=== PATIENT | male | born 1960 | race Caucasian/White ===

== ENCOUNTER 2017-11-05 13:46 | Inpatient (IN) | payer MEDICAID, OTHER ==
[~2017-11-05] VITALS: Ht 170.2 cm; Wt 75.9 kg
[~2017-11-05 13:46] MED LIST: ASPI-611 PO; HYDR-569 PO; LEVO750T21 PO; METF500T PO
[2017-11-05 16:08] LABS: BASOPHILS # (AUTO) 0.1 X10'3 (0-0.2); BASOPHILS % (AUTO) 0.5 % (0-1); EOSINOPHILS % (AUTO) 0.1 % (0-6); HEMATOCRIT 42.7 % (42.0-52.0); LYMPHOCYTES # (AUTO) 1.7 X10'3 (1.1-4.8); LYMPHOCYTES % (AUTO) 15.8 % (21-51); MEAN CORPUSCULAR HEMOGLOBIN 31.3 PG (27.0-31.0); MEAN CORPUSCULAR HGB CONC 32.9 % (33.0-36.5); MEAN CORPUSCULAR VOLUME 95.3 FL (78-98); MEAN PLATELET VOLUME 7.4 FL (7.4-10.4); MONOCYTES # (AUTO) 1.1 X10'3 (0-0.9); MONOCYTES % (AUTO) 9.5 % (2-12); NEUTROPHILS # (AUTO) 8.2 X10'3 (1.8-7.7); NEUTROPHILS % (AUTO) 74.1 % (42-75); PLATELET COUNT 501 X10'3 (140-440); RED BLOOD COUNT 4.48 X10'6 (4.70-6.10); WHITE BLOOD COUNT 11.1 X10'3 (4.5-11.0)
[2017-11-05 16:21] LABS: PARTIAL THROMBOPLASTIN TIME 27 SECONDS (22-32); PROTHROMBIN TIME 10.8 SECONDS (9.0-12.0)
[2017-11-05 16:22] LABS: ALANINE AMINOTRANSFERASE 24 U/L (12-78); ALBUMIN 2.6 G/DL (3.4-5.0); ALBUMIN/GLOBULIN RATIO 0.4 (1.1-1.5); ALKALINE PHOSPHATASE 93 IU/L (46-116); ANION GAP 11 (8-16); ASPARTATE AMINO TRANSFERASE 16 U/L (10-37); BILIRUBIN,TOTAL 0.5 MG/DL (0.1-1.0); BLOOD UREA NITROGEN 10 MG/DL (7-18); BUN/CREATININE RATIO 9.3 (5.4-32.0); CALCIUM 9.2 MG/DL (8.5-10.1); CHLORIDE 93 MMOL/L (99-107); CREATININE 1.07 MG/DL (0.60-1.10); GLUCOSE 376 MG/DL (70-104); POTASSIUM 3.2 MMOL/L (3.5-5.1); SODIUM 133 MMOL/L (135-145); TOTAL CARBON DIOXIDE 28.9 MMOL/L (24-32); TOTAL PROTEIN 8.7 G/DL (6.4-8.2); eGFR 72 ML/MIN
[2017-11-05] MEDS ORDERED: potassium Cl 20 mEq SR tablet PO ONE (16:30)
[2017-11-05] MEDS ORDERED: ondansetron/PF 4mg/2ml inj IV ONE (16:30)
[2017-11-05] MEDS ORDERED: dextrose ORAL solution 15 GM/59 ML bottle PO PRN ×2 (20:15)
[2017-11-05] MEDS ORDERED: ondansetron/PF 4mg/2ml inj IV PRN (20:15)
[2017-11-05] MEDS ORDERED: acetaminophen 325mg tablet PO PRN (20:15)
[2017-11-05] MEDS ORDERED: MESSAGE TO PHARMACY PO ONE (20:15)
[2017-11-05] MEDS: azithromycin/NS 500mg/250ml 250 ML IV SCH (20:15)
[2017-11-05] MEDS ORDERED: dextrose 50%-water 50ml dispensing syringe IV PRN ×2 (20:15)
[2017-11-05] MEDS ORDERED: mag hydrox/Alum hydrox/simeth 30ml oral suspension PO PRN (20:15)
[2017-11-05] MEDS ORDERED: magnesium hydroxide 30ml (MOM) UD suspension PO PRN (20:15)
[2017-11-05] MEDS ORDERED: glucagon, human recombinant 1mg kit SUBCUT PRN (20:15)
[2017-11-05] MEDS ORDERED: potassium Cl 20 mEq SR tablet PO PRN (20:50)
[2017-11-05] MEDS ORDERED: potassium Cl 40MEQ/NS 500ml 500 ML IV PRN ×2 (20:50)
[2017-11-05] MEDS: Insulin Detemir pen SQ SCH (21:00)
[2017-11-05] MEDS: CefTRIAXone 2gm/D5W 50ml ADVTG 50 ML IV SCH (21:10)
[2017-11-06] VITALS (9 sets, daily range): BP systolic 124–203; BP diastolic 81–120
[2017-11-06] MEDS ORDERED: Insulin Detemir pen SQ ONE (01:38)
[2017-11-06 04:31] LABS: BASOPHILS # (AUTO) 0.1 X10'3 (0-0.2); EOSINOPHILS # (AUTO) 0.1 X10'3 (0-0.9); EOSINOPHILS % (AUTO) 0.6 % (0-6); HEMATOCRIT 38.3 % (42.0-52.0); LYMPHOCYTES # (AUTO) 1.5 X10'3 (1.1-4.8); LYMPHOCYTES % (AUTO) 16.8 % (21-51); MEAN CORPUSCULAR HEMOGLOBIN 31.9 PG (27.0-31.0); MEAN PLATELET VOLUME 7.8 FL (7.4-10.4); MONOCYTES # (AUTO) 0.7 X10'3 (0-0.9); MONOCYTES % (AUTO) 8.3 % (2-12); NEUTROPHILS # (AUTO) 6.3 X10'3 (1.8-7.7); NEUTROPHILS % (AUTO) 73.3 % (42-75); PLATELET COUNT 471 X10'3 (140-440); RED BLOOD COUNT 4.07 X10'6 (4.70-6.10); RED CELL DISTRIBUTION WIDTH 13.3 % (11.5-14.5); WHITE BLOOD COUNT 8.6 X10'3 (4.5-11.0)
[2017-11-06 04:52] LABS: ALBUMIN 2.2 G/DL (3.4-5.0); ANION GAP 10 (8-16); BLOOD UREA NITROGEN 7 MG/DL (7-18); CALCIUM 8.4 MG/DL (8.5-10.1); CHLORIDE 97 MMOL/L (99-107); CREATININE 0.78 MG/DL (0.60-1.10); GLUCOSE 289 MG/DL (70-104); MAGNESIUM 1.9 MG/DL (1.5-2.4); POTASSIUM 3.9 MMOL/L (3.5-5.1); SODIUM 134 MMOL/L (135-145); TOTAL CARBON DIOXIDE 26.7 MMOL/L (24-32); eGFR > 90 ML/MIN
[2017-11-06] MEDS: CefTRIAXone 2gm/D5W 50ml ADVTG 50 ML IV SCH (08:26)
[2017-11-06] MEDS: azithromycin/NS 500mg/250ml 250 ML IV SCH (08:26)
[2017-11-06] MEDS ORDERED: midazolam 2 mg/2 ml injection IV PRN (08:40)
[2017-11-06] MEDS ORDERED: fentaNYL/PF 50MCG/1 ML 2ML syringe IV PRN (08:40)
[2017-11-06] MEDS ORDERED: fentaNYL/PF 50MCG/1 ML 2ML syringe ONE (09:23)
[2017-11-06] MEDS ORDERED: midazolam 2 mg/2 ml injection ONE (09:23)
[2017-11-06 11:33] LABS: LYMPHOCYTES,BODY FLUID 3 %; MONOCYTES,BODY FLUID 22 %; NEUTROPHILS,BODY FLUID 75 %
[2017-11-06 11:35] LABS: BFAPPEAR TURBID; BFCOLOR AMBER
[2017-11-06 11:36] LABS: BF RBC COUNT 275 /CU MM; BF WBC COUNT 46000 /CU MM (0-1000); BFVOLUME 22 ML
[2017-11-06 12:10] LABS: BFSOURCE RIGHT PLEURAL FLD
[2017-11-06] MEDS: insulin Lispro (HumaLOG) vial - multi-dose SQ SCH ×3 (12:52→22:10)
[2017-11-06] MEDS: Insulin Detemir pen SQ SCH (20:53)
[2017-11-07] VITALS: BP 130/71
[2017-11-07 05:26] LABS: BASOPHILS % (AUTO) 0.3 % (0-1); EOSINOPHILS # (AUTO) 0.2 X10'3 (0-0.9); HEMATOCRIT 38.2 % (42.0-52.0); HEMOGLOBIN 12.9 g/dl (14.0-17.9); LYMPHOCYTES # (AUTO) 1.9 X10'3 (1.1-4.8); LYMPHOCYTES % (AUTO) 23.7 % (21-51); MEAN CORPUSCULAR HEMOGLOBIN 31.8 PG (27.0-31.0); MEAN CORPUSCULAR HGB CONC 33.7 % (33.0-36.5); MEAN CORPUSCULAR VOLUME 94.3 FL (78-98); MEAN PLATELET VOLUME 7.8 FL (7.4-10.4); MONOCYTES # (AUTO) 0.8 X10'3 (0-0.9); MONOCYTES % (AUTO) 9.6 % (2-12); NEUTROPHILS # (AUTO) 5.3 X10'3 (1.8-7.7); NEUTROPHILS % (AUTO) 64.4 % (42-75); PLATELET COUNT 492 X10'3 (140-440); RED BLOOD COUNT 4.05 X10'6 (4.70-6.10); RED CELL DISTRIBUTION WIDTH 12.6 % (11.5-14.5); WHITE BLOOD COUNT 8.2 X10'3 (4.5-11.0)
[2017-11-07 05:57] LABS: ALBUMIN 2.1 G/DL (3.4-5.0); ANION GAP 8 (8-16); BLOOD UREA NITROGEN 11 MG/DL (7-18); BUN/CREATININE RATIO 14.3 (5.4-32.0); CALCIUM 8.7 MG/DL (8.5-10.1); CHLORIDE 98 MMOL/L (99-107); CREATININE 0.77 MG/DL (0.60-1.10); GLUCOSE 208 MG/DL (70-104); MAGNESIUM 2.2 MG/DL (1.5-2.4); POTASSIUM 3.3 MMOL/L (3.5-5.1); SODIUM 136 MMOL/L (135-145); TOTAL CARBON DIOXIDE 29.8 MMOL/L (24-32); eGFR > 90 ML/MIN
[2017-11-07 06:30] VITALS: BP 131/81
[2017-11-07] MEDS: CefTRIAXone 2gm/D5W 50ml ADVTG 50 ML IV SCH (07:12)
[2017-11-07] MEDS: azithromycin/NS 500mg/250ml 250 ML IV SCH (07:12)
[2017-11-07] MEDS: LACTOBACILLUS RHAMNOSUS GG 15 billion unit sprinkle caps PO SCH (07:12)
[2017-11-07] MEDS: potassium Cl 20 mEq SR tablet PO PRN ×2 (07:14→19:04)
[2017-11-07] MEDS ORDERED: enoxaparin 40mg/0.4ml syringe SUBCUT SCH (08:00)
[2017-11-07] MEDS: insulin Lispro (HumaLOG) vial - multi-dose SQ SCH ×3 (09:19→19:07)
[2017-11-07 11:00] VITALS: BP 147/90
[2017-11-07 19:00] VITALS: BP 120/77
[2017-11-07] MEDS: temazepam 15mg capsule PO PRN (21:43)
[2017-11-07] MEDS: Insulin Detemir pen SQ SCH (21:45)
[2017-11-08] VITALS: BP 122/84
[2017-11-08 05:07] LABS: BASOPHILS % (AUTO) 0.6 % (0-1); EOSINOPHILS # (AUTO) 0.2 X10'3 (0-0.9); EOSINOPHILS % (AUTO) 2.9 % (0-6); HEMATOCRIT 37.6 % (42.0-52.0); HEMOGLOBIN 12.8 g/dl (14.0-17.9); LYMPHOCYTES # (AUTO) 2.3 X10'3 (1.1-4.8); LYMPHOCYTES % (AUTO) 28.6 % (21-51); MEAN CORPUSCULAR HEMOGLOBIN 31.7 PG (27.0-31.0); MEAN CORPUSCULAR VOLUME 93.4 FL (78-98); MEAN PLATELET VOLUME 7.6 FL (7.4-10.4); MONOCYTES # (AUTO) 0.9 X10'3 (0-0.9); MONOCYTES % (AUTO) 11.2 % (2-12); NEUTROPHILS # (AUTO) 4.5 X10'3 (1.8-7.7); NEUTROPHILS % (AUTO) 56.7 % (42-75); PLATELET COUNT 524 X10'3 (140-440); RED BLOOD COUNT 4.03 X10'6 (4.70-6.10)
[2017-11-08] MEDS: acetaminophen 325mg tablet PO PRN ×2 (05:46→19:51)
[2017-11-08 06:07] LABS: ALBUMIN 2.1 G/DL (3.4-5.0); ANION GAP 9 (8-16); BLOOD UREA NITROGEN 10 MG/DL (7-18); CALCIUM 8.7 MG/DL (8.5-10.1); CHLORIDE 102 MMOL/L (99-107); CREATININE 0.77 MG/DL (0.60-1.10); GLUCOSE 185 MG/DL (70-104); MAGNESIUM 2.3 MG/DL (1.5-2.4); POTASSIUM 3.6 MMOL/L (3.5-5.1); SODIUM 137 MMOL/L (135-145); TOTAL CARBON DIOXIDE 25.7 MMOL/L (24-32); eGFR > 90 ML/MIN
[2017-11-08 06:30] VITALS: BP 159/75
[2017-11-08] MEDS: LACTOBACILLUS RHAMNOSUS GG 15 billion unit sprinkle caps PO SCH (08:11)
[2017-11-08] MEDS: CefTRIAXone 2gm/D5W 50ml ADVTG 50 ML IV SCH (08:12)
[2017-11-08] MEDS: insulin Lispro (HumaLOG) vial - multi-dose SQ SCH ×3 (08:32→18:56)
[2017-11-08] MEDS: azithromycin/NS 500mg/250ml 250 ML IV SCH (09:46)
[2017-11-08 12:00] VITALS: BP 119/84
[2017-11-08 19:00] VITALS: BP 135/90
[2017-11-08] MEDS: Insulin Detemir pen SQ SCH (20:51)
[2017-11-08] MEDS: temazepam 15mg capsule PO PRN (20:52)
[2017-11-09] VITALS: BP 120/56
[2017-11-09 03:27] LABS: BASOPHILS # (AUTO) 0.1 X10'3 (0-0.2); BASOPHILS % (AUTO) 0.7 % (0-1); EOSINOPHILS # (AUTO) 0.2 X10'3 (0-0.9); EOSINOPHILS % (AUTO) 2.7 % (0-6); HEMATOCRIT 39.3 % (42.0-52.0); HEMOGLOBIN 13.1 g/dl (14.0-17.9); LYMPHOCYTES # (AUTO) 2.4 X10'3 (1.1-4.8); LYMPHOCYTES % (AUTO) 28.6 % (21-51); MEAN CORPUSCULAR HEMOGLOBIN 31.6 PG (27.0-31.0); MEAN CORPUSCULAR HGB CONC 33.4 % (33.0-36.5); MEAN CORPUSCULAR VOLUME 94.6 FL (78-98); MEAN PLATELET VOLUME 7.6 FL (7.4-10.4); MONOCYTES # (AUTO) 1.1 X10'3 (0-0.9); MONOCYTES % (AUTO) 13.6 % (2-12); NEUTROPHILS # (AUTO) 4.6 X10'3 (1.8-7.7); NEUTROPHILS % (AUTO) 54.4 % (42-75); PLATELET COUNT 577 X10'3 (140-440); RED BLOOD COUNT 4.15 X10'6 (4.70-6.10); RED CELL DISTRIBUTION WIDTH 12.9 % (11.5-14.5); WHITE BLOOD COUNT 8.5 X10'3 (4.5-11.0)
[2017-11-09 04:11] LABS: ALBUMIN 2.2 G/DL (3.4-5.0); ANION GAP 6 (8-16); BLOOD UREA NITROGEN 8 MG/DL (7-18); BUN/CREATININE RATIO 11.3 (5.4-32.0); CALCIUM 8.8 MG/DL (8.5-10.1); CHLORIDE 103 MMOL/L (99-107); CREATININE 0.71 MG/DL (0.60-1.10); GLUCOSE 153 MG/DL (70-104); MAGNESIUM 2.3 MG/DL (1.5-2.4); SODIUM 139 MMOL/L (135-145); TOTAL CARBON DIOXIDE 30.2 MMOL/L (24-32); eGFR > 90 ML/MIN
[2017-11-09 07:00] VITALS: BP 132/76
[2017-11-09] MEDS: LACTOBACILLUS RHAMNOSUS GG 15 billion unit sprinkle caps PO SCH (07:12)
[2017-11-09] MEDS: CefTRIAXone 2gm/D5W 50ml ADVTG 50 ML IV SCH (07:13)
[2017-11-09] MEDS: azithromycin/NS 500mg/250ml 250 ML IV SCH (08:00)
[2017-11-09] MEDS: insulin Lispro (HumaLOG) vial - multi-dose SQ SCH ×3 (09:09→19:22)
[2017-11-09 11:01] VITALS: BP 120/87
[2017-11-09] MEDS: azithromycin 250mg tablet PO SCH (16:17)
[2017-11-09 19:30] VITALS: BP 120/74
[2017-11-09] MEDS: Insulin Detemir pen SQ SCH (22:26)
[2017-11-09] MEDS: temazepam 15mg capsule PO PRN (22:28)
[2017-11-09 23:30] VITALS: BP 136/82
[2017-11-10 05:21] LABS: BASOPHILS % (AUTO) 0.4 % (0-1); EOSINOPHILS # (AUTO) 0.3 X10'3 (0-0.9); EOSINOPHILS % (AUTO) 3.3 % (0-6); HEMATOCRIT 38.4 % (42.0-52.0); HEMOGLOBIN 12.9 g/dl (14.0-17.9); LYMPHOCYTES # (AUTO) 2.8 X10'3 (1.1-4.8); LYMPHOCYTES % (AUTO) 30.1 % (21-51); MEAN CORPUSCULAR HEMOGLOBIN 31.7 PG (27.0-31.0); MEAN CORPUSCULAR HGB CONC 33.6 % (33.0-36.5); MEAN CORPUSCULAR VOLUME 94.3 FL (78-98); MEAN PLATELET VOLUME 7.6 FL (7.4-10.4); MONOCYTES # (AUTO) 1.1 X10'3 (0-0.9); MONOCYTES % (AUTO) 11.9 % (2-12); NEUTROPHILS # (AUTO) 5.1 X10'3 (1.8-7.7); NEUTROPHILS % (AUTO) 54.3 % (42-75); PLATELET COUNT 612 X10'3 (140-440); RED BLOOD COUNT 4.07 X10'6 (4.70-6.10); WHITE BLOOD COUNT 9.3 X10'3 (4.5-11.0)
[2017-11-10 05:53] LABS: ALBUMIN 2.5 G/DL (3.4-5.0); ANION GAP 8 (8-16); BLOOD UREA NITROGEN 8 MG/DL (7-18); BUN/CREATININE RATIO 10.4 (5.4-32.0); CALCIUM 8.8 MG/DL (8.5-10.1); CHLORIDE 101 MMOL/L (99-107); CREATININE 0.77 MG/DL (0.60-1.10); GLUCOSE 168 MG/DL (70-104); MAGNESIUM 2.3 MG/DL (1.5-2.4); POTASSIUM 4.1 MMOL/L (3.5-5.1); SODIUM 136 MMOL/L (135-145); TOTAL CARBON DIOXIDE 27.2 MMOL/L (24-32); eGFR > 90 ML/MIN
[2017-11-10 07:00] VITALS: BP 130/79
[2017-11-10] MEDS: azithromycin 250mg tablet PO SCH (07:46)
[2017-11-10] MEDS: LACTOBACILLUS RHAMNOSUS GG 15 billion unit sprinkle caps PO SCH (07:46)
[2017-11-10] MEDS: CefTRIAXone 2gm/D5W 50ml ADVTG 50 ML IV SCH (07:46)
[2017-11-10] MEDS ORDERED: AZI25OT PO (09:33)
[2017-11-10] MEDS ORDERED: CEFD300C3 PO (09:33)
[2017-11-10] MEDS ORDERED: LACT1CAP74 PO (09:33)
[2017-11-10] MEDS: insulin Lispro (HumaLOG) vial - multi-dose SQ SCH (10:05)
== END 2017-11-10 11:46 | disposition home or self-care (01) | DRG 137 ==
LOC: ER 13:48 → ED HOLD 20:15 → SUR 3N 11-06 13:24
PROVIDERS: ADMIT Internal Medicine; ATTEND Family Medicine
PROC: 0W9930Z Drainage of Right Pleural Cavity with Drainage Device, Percutaneous Approach (ICD-10-PCS; principal; 2017-11-06)
DX: J86.9 Pyothorax without fistula (principal); J90 Pleural effusion, not elsewhere classified; J18.9 Pneumonia, unspecified organism; E11.9 Type 2 diabetes mellitus without complications; R91.8 Other nonspecific abnormal finding of lung field; E87.6 Hypokalemia; I25.10 Atherosclerotic heart disease of native coronary artery without angina pectoris; F17.210 Nicotine dependence, cigarettes, uncomplicated; Z79.82 Long term (current) use of aspirin; Z79.84 Long term (current) use of oral hypoglycemic drugs; Z80.9 Family history of malignant neoplasm, unspecified; Z71.6 Tobacco abuse counseling
CPT/HCPCS: 32557; 36415; 71045; 71046; 71250; 80048; 80053; 82948; 83036; 83605; 83735; 83880; 83986; 84484; 85025; 85610; 85730; 87040; 87070; 89051; 93005; 96374; 96375; 99285; A6223; A6257; C1729; J0456; J0696; J2250; J2270; J2405; J3010; J7030

== ENCOUNTER 2017-12-03 10:55 | Inpatient (IN) | payer MEDICAID, OTHER ==
[~2017-12-03] VITALS: Ht 170.2 cm; Wt 66.3 kg
[~2017-12-03 10:55] MED LIST changes: +AZI25OT PO; +CEFD300C3 PO; -HYDR-569 PO; +LACT1CAP74 PO; -LEVO750T21 PO
[2017-12-03 11:33] LABS: BASOPHILS % (AUTO) 0.4 % (0-1); EOSINOPHILS % (AUTO) 0.1 % (0-6); HEMATOCRIT 33.9 % (42.0-52.0); HEMOGLOBIN 11.4 g/dl (14.0-17.9); LYMPHOCYTES # (AUTO) 1.5 X10'3 (1.1-4.8); LYMPHOCYTES % (AUTO) 20.4 % (21-51); MEAN CORPUSCULAR HEMOGLOBIN 30.7 PG (27.0-31.0); MEAN CORPUSCULAR HGB CONC 33.6 % (33.0-36.5); MEAN CORPUSCULAR VOLUME 91.3 FL (78-98); MEAN PLATELET VOLUME 7.4 FL (7.4-10.4); MONOCYTES # (AUTO) 0.6 X10'3 (0-0.9); MONOCYTES % (AUTO) 8.1 % (2-12); NEUTROPHILS # (AUTO) 5.3 X10'3 (1.8-7.7); PLATELET COUNT 367 X10'3 (140-440); RED BLOOD COUNT 3.71 X10'6 (4.70-6.10); RED CELL DISTRIBUTION WIDTH 13.2 % (11.5-14.5); WHITE BLOOD COUNT 7.5 X10'3 (4.5-11.0)
[2017-12-03 11:43] LABS: INR 1.1 INR; PARTIAL THROMBOPLASTIN TIME 28 SECONDS (22-32); PROTHROMBIN TIME 11.4 SECONDS (9.0-12.0)
[2017-12-03 11:55] LABS: ALANINE AMINOTRANSFERASE 12 U/L (12-78); ALBUMIN 2.1 G/DL (3.4-5.0); ALBUMIN/GLOBULIN RATIO 0.3 (1.1-1.5); ALKALINE PHOSPHATASE 83 IU/L (46-116); ANION GAP 7 (8-16); ASPARTATE AMINO TRANSFERASE 13 U/L (10-37); BILIRUBIN,TOTAL 0.7 MG/DL (0.1-1.0); BLOOD UREA NITROGEN 9 MG/DL (7-18); BUN/CREATININE RATIO 8.2 (5.4-32.0); CHLORIDE 91 MMOL/L (99-107); POTASSIUM 4.1 MMOL/L (3.5-5.1); SODIUM 126 MMOL/L (135-145); TOTAL CARBON DIOXIDE 28.2 MMOL/L (24-32); TOTAL PROTEIN 8.9 G/DL (6.4-8.2); eGFR 69 ML/MIN
[2017-12-03 11:56] LABS: GLUCOSE 496 MG/DL (70-104)
[2017-12-03 11:57] LABS: CLARITY,URINE CLEAR (Clear); COLOR,URINE STRAW (Yellow); GLUCOSE, URINE >=1000 mg/dl (Neg); KETONES,URINE 15 mg/dl (Neg); LEUKOCYTE ESTERASE ,URINE NEGATIVE (Neg); NITRITES, URINE NEGATIVE (Neg); OCCULT BLOOD,URINE NEGATIVE (Neg); PH,URINE 5.5 (4.8-8.0); PROTEIN,URINE NEGATIVE (Neg)
[2017-12-03 11:58] LABS: UA COLLECTION TYPE CLN CATCH MIDSTREAM
[2017-12-03 12:07] LABS: SQUAMOUS EPITHELIAL CELL,UR FEW /LPF (FEW)
[2017-12-03 12:08] LABS: BACTERIA,URINE FEW /HPF (Neg); RBC,URINE 0-2 /HPF (0-2); WBC,URINE 0-4 /HPF (0-4); YEAST FEW /HPF (NEGATIVE)
[2017-12-03] MEDS ORDERED: normal saline 1000ML IV soln IVB ONE (12:35)
[2017-12-03] MEDS ORDERED: levoFLOXACIN-Levaquin 750MG/D5 150 ML IV ONE (12:55)
[2017-12-03] MEDS ORDERED: LIDOcaine 1%/PF (10mg/ml) 5ml vial ONE (13:31)
[2017-12-03] MEDS ORDERED: morphine 5 MG/ML injection IV PRN (13:35)
[2017-12-03] MEDS ORDERED: ondansetron/PF 4mg/2ml inj IV PRN (13:35)
[2017-12-03] MEDS ORDERED: potassium Cl 40MEQ/NS 500ml 500 ML IV PRN ×2 (13:35)
[2017-12-03] MEDS ORDERED: magnesium 2GM in 50ml NS 50 ML IV PRN (13:35)
[2017-12-03] MEDS ORDERED: acetaminophen 325mg tablet PO PRN ×2 (13:35)
[2017-12-03] MEDS ORDERED: magnesium 4gm in 100ml NS 100 ML IV PRN (13:35)
[2017-12-03] MEDS ORDERED: magnesium Cl slow-release 64mg tablet PO PRN (13:35)
[2017-12-03] MEDS ORDERED: HYDROmorphone 1 mg/ml syringe IV PRN (13:35)
[2017-12-03] MEDS ORDERED: magnesium hydroxide 30ml (MOM) UD suspension PO PRN (13:35)
[2017-12-03] MEDS ORDERED: potassium Cl 20 mEq SR tablet PO PRN (13:35)
[2017-12-03] MEDS ORDERED: mag hydrox/Alum hydrox/simeth 30ml oral suspension PO PRN (13:35)
[2017-12-03] MEDS ORDERED: dextrose ORAL solution 15 GM/59 ML bottle PO PRN (13:40)
[2017-12-03] MEDS ORDERED: dextrose 50%-water 50ml dispensing syringe IV PRN ×2 (13:40)
[2017-12-03] MEDS ORDERED: MESSAGE TO PHARMACY PO ONE (13:40)
[2017-12-03] MEDS ORDERED: glucagon, human recombinant 1mg kit SUBCUT PRN (13:40)
[2017-12-03 14:15] VITALS: BP 113/85
[2017-12-03 14:31] VITALS: BP 115/77
[2017-12-03 16:30] VITALS: BP_SYST 117; BP_SYST 126; BP_DIAS 77; BP_DIAS 89
[2017-12-03] MEDS: normal saline 1000ml 1,000 ML IV SCH ×2 (17:11→23:32)
[2017-12-03 19:00] VITALS: BP 126/76
[2017-12-03] MEDS: insulin Lispro (HumaLOG) vial - multi-dose SQ SCH (19:44)
[2017-12-03] MEDS: insulin glargine (Lantus) pen - multi-dose SQ SCH (22:02)
[2017-12-03 23:30] VITALS: BP 131/73
[2017-12-04] MEDS: normal saline 1000ml 1,000 ML IV SCH ×2 (01:59→19:32)
[2017-12-04] MEDS: HYDROcodone/acetaminophen 5mg/325mg tablet PO PRN (05:58)
[2017-12-04 06:00] LABS: BASOPHILS % (AUTO) 0.2 % (0-1); EOSINOPHILS # (AUTO) 0.1 X10'3 (0-0.9); EOSINOPHILS % (AUTO) 1.3 % (0-6); HEMOGLOBIN 10.2 g/dl (14.0-17.9); LYMPHOCYTES % (AUTO) 29.3 % (21-51); MEAN CORPUSCULAR HEMOGLOBIN 31.2 PG (27.0-31.0); MEAN CORPUSCULAR HGB CONC 34.2 % (33.0-36.5); MEAN CORPUSCULAR VOLUME 91.4 FL (78-98); MEAN PLATELET VOLUME 7.5 FL (7.4-10.4); MONOCYTES # (AUTO) 0.6 X10'3 (0-0.9); MONOCYTES % (AUTO) 9.1 % (2-12); NEUTROPHILS % (AUTO) 60.1 % (42-75); PLATELET COUNT 344 X10'3 (140-440); RED BLOOD COUNT 3.28 X10'6 (4.70-6.10); RED CELL DISTRIBUTION WIDTH 13.3 % (11.5-14.5); WHITE BLOOD COUNT 6.7 X10'3 (4.5-11.0)
[2017-12-04 06:09] LABS: ALBUMIN 1.6 G/DL (3.4-5.0); ANION GAP 10 (8-16); BLOOD UREA NITROGEN 7 MG/DL (7-18); CALCIUM 8.1 MG/DL (8.5-10.1); CHLORIDE 100 MMOL/L (99-107); GLUCOSE 183 MG/DL (70-104); MAGNESIUM 1.7 MG/DL (1.5-2.4); POTASSIUM 3.5 MMOL/L (3.5-5.1); SODIUM 136 MMOL/L (135-145); TOTAL CARBON DIOXIDE 26.3 MMOL/L (24-32); eGFR > 90 ML/MIN
[2017-12-04] MEDS: K and/or MAG REPLACEMENT MC SCH (07:29)
[2017-12-04 08:48] VITALS: BP 119/72
[2017-12-04] MEDS: insulin Lispro (HumaLOG) vial - multi-dose SQ SCH ×3 (09:07→19:56)
[2017-12-04] MEDS: levoFLOXACIN 750MG TABLET PO SCH (10:52)
[2017-12-04 11:26] VITALS: BP 115/66
[2017-12-04] MEDS: lactobacillus rhamnosus 10,000 MMU CELLS/CAPSULE PO SCH (17:07)
[2017-12-04 20:00] VITALS: BP 133/80
[2017-12-04] MEDS: temazepam 15mg capsule PO PRN (21:02)
[2017-12-04] MEDS: insulin glargine (Lantus) pen - multi-dose SQ SCH (21:09)
[2017-12-05] VITALS: BP 114/99
[2017-12-05] MEDS: normal saline 1000ml 1,000 ML IV SCH ×3 (00:51→21:26)
[2017-12-05 06:32] LABS: BASOPHILS % (AUTO) 0.3 % (0-1); EOSINOPHILS # (AUTO) 0.1 X10'3 (0-0.9); EOSINOPHILS % (AUTO) 1.9 % (0-6); HEMATOCRIT 32.1 % (42.0-52.0); HEMOGLOBIN 10.8 g/dl (14.0-17.9); LYMPHOCYTES # (AUTO) 2.1 X10'3 (1.1-4.8); MEAN CORPUSCULAR HEMOGLOBIN 30.9 PG (27.0-31.0); MEAN CORPUSCULAR HGB CONC 33.6 % (33.0-36.5); MEAN CORPUSCULAR VOLUME 91.8 FL (78-98); MEAN PLATELET VOLUME 7.5 FL (7.4-10.4); MONOCYTES # (AUTO) 0.5 X10'3 (0-0.9); MONOCYTES % (AUTO) 7.9 % (2-12); NEUTROPHILS # (AUTO) 4.1 X10'3 (1.8-7.7); NEUTROPHILS % (AUTO) 59.9 % (42-75); PLATELET COUNT 418 X10'3 (140-440); RED CELL DISTRIBUTION WIDTH 13.8 % (11.5-14.5); WHITE BLOOD COUNT 6.9 X10'3 (4.5-11.0)
[2017-12-05 07:00] VITALS: BP 133/75
[2017-12-05 07:04] LABS: ALBUMIN 1.5 G/DL (3.4-5.0); ANION GAP 12 (8-16); BLOOD UREA NITROGEN 7 MG/DL (7-18); CALCIUM 8.4 MG/DL (8.5-10.1); CHLORIDE 102 MMOL/L (99-107); GLUCOSE 205 MG/DL (70-104); MAGNESIUM 1.7 MG/DL (1.5-2.4); POTASSIUM 3.4 MMOL/L (3.5-5.1); SODIUM 137 MMOL/L (135-145); TOTAL CARBON DIOXIDE 22.6 MMOL/L (24-32); eGFR > 90 ML/MIN
[2017-12-05] MEDS: lactobacillus rhamnosus 10,000 MMU CELLS/CAPSULE PO SCH ×2 (07:25→17:03)
[2017-12-05] MEDS: HYDROcodone/acetaminophen 5mg/325mg tablet PO PRN ×2 (07:26→21:22)
[2017-12-05] MEDS: potassium Cl 20 mEq SR tablet PO PRN ×3 (07:28→21:21)
[2017-12-05] MEDS: K and/or MAG REPLACEMENT MC SCH (08:00)
[2017-12-05] MEDS: insulin Lispro (HumaLOG) vial - multi-dose SQ SCH ×3 (09:48→19:03)
[2017-12-05] MEDS: levoFLOXACIN 750MG TABLET PO SCH (12:27)
[2017-12-05] MEDS: dextrose ORAL solution 15 GM/59 ML bottle PO PRN (17:04)
[2017-12-05 20:00] VITALS: BP 136/81
[2017-12-05] MEDS: temazepam 15mg capsule PO PRN (21:21)
[2017-12-05] MEDS: insulin glargine (Lantus) pen - multi-dose SQ SCH (21:33)
[2017-12-06] VITALS: BP 117/73
[2017-12-06 05:34] LABS: BASOPHILS % (AUTO) 0.5 % (0-1); EOSINOPHILS # (AUTO) 0.2 X10'3 (0-0.9); EOSINOPHILS % (AUTO) 3.3 % (0-6); HEMATOCRIT 31.9 % (42.0-52.0); HEMOGLOBIN 10.8 g/dl (14.0-17.9); LYMPHOCYTES # (AUTO) 2.1 X10'3 (1.1-4.8); LYMPHOCYTES % (AUTO) 36.5 % (21-51); MEAN CORPUSCULAR HGB CONC 33.8 % (33.0-36.5); MEAN CORPUSCULAR VOLUME 91.6 FL (78-98); MEAN PLATELET VOLUME 7.3 FL (7.4-10.4); MONOCYTES # (AUTO) 0.6 X10'3 (0-0.9); MONOCYTES % (AUTO) 9.6 % (2-12); NEUTROPHILS # (AUTO) 2.9 X10'3 (1.8-7.7); NEUTROPHILS % (AUTO) 50.1 % (42-75); PLATELET COUNT 476 X10'3 (140-440); RED BLOOD COUNT 3.48 X10'6 (4.70-6.10); RED CELL DISTRIBUTION WIDTH 13.6 % (11.5-14.5); WHITE BLOOD COUNT 5.7 X10'3 (4.5-11.0)
[2017-12-06 06:06] LABS: ALBUMIN 1.5 G/DL (3.4-5.0); ANION GAP 8 (8-16); BLOOD UREA NITROGEN 5 MG/DL (7-18); BUN/CREATININE RATIO 8.3 (5.4-32.0); CALCIUM 8.5 MG/DL (8.5-10.1); CHLORIDE 106 MMOL/L (99-107); GLUCOSE 156 MG/DL (70-104); MAGNESIUM 1.7 MG/DL (1.5-2.4); POTASSIUM 3.5 MMOL/L (3.5-5.1); SODIUM 141 MMOL/L (135-145); TOTAL CARBON DIOXIDE 26.6 MMOL/L (24-32); eGFR > 90 ML/MIN
[2017-12-06 07:00] VITALS: BP 137/78
[2017-12-06] MEDS: HYDROcodone/acetaminophen 5mg/325mg tablet PO PRN ×2 (07:02→20:19)
[2017-12-06] MEDS: lactobacillus rhamnosus 10,000 MMU CELLS/CAPSULE PO SCH ×2 (07:02→18:11)
[2017-12-06] MEDS: K and/or MAG REPLACEMENT MC SCH (07:03)
[2017-12-06] MEDS: insulin Lispro (HumaLOG) vial - multi-dose SQ SCH ×3 (08:28→19:01)
[2017-12-06] MEDS: normal saline 1000ml 1,000 ML IV SCH ×2 (10:02→20:15)
[2017-12-06 11:00] VITALS: BP 100/71
[2017-12-06] MEDS: levoFLOXACIN 750MG TABLET PO SCH (11:24)
[2017-12-06] MEDS: dextrose ORAL solution 15 GM/59 ML bottle PO PRN (17:07)
[2017-12-06 18:40] VITALS: BP 132/82
[2017-12-06] MEDS: temazepam 15mg capsule PO PRN (21:14)
[2017-12-06] MEDS: insulin glargine (Lantus) pen - multi-dose SQ SCH (21:14)
[2017-12-07] VITALS: BP 141/81
[2017-12-07] MEDS: normal saline 1000ml 1,000 ML IV SCH (04:54)
[2017-12-07 06:07] LABS: BASOPHILS # (AUTO) 0.1 X10'3 (0-0.2); BASOPHILS % (AUTO) 0.9 % (0-1); EOSINOPHILS # (AUTO) 0.2 X10'3 (0-0.9); EOSINOPHILS % (AUTO) 3.2 % (0-6); HEMATOCRIT 33.2 % (42.0-52.0); HEMOGLOBIN 11.1 g/dl (14.0-17.9); LYMPHOCYTES # (AUTO) 2.6 X10'3 (1.1-4.8); LYMPHOCYTES % (AUTO) 37.8 % (21-51); MEAN CORPUSCULAR HEMOGLOBIN 30.7 PG (27.0-31.0); MEAN CORPUSCULAR HGB CONC 33.5 % (33.0-36.5); MEAN CORPUSCULAR VOLUME 91.8 FL (78-98); MONOCYTES # (AUTO) 0.6 X10'3 (0-0.9); MONOCYTES % (AUTO) 8.5 % (2-12); NEUTROPHILS # (AUTO) 3.4 X10'3 (1.8-7.7); NEUTROPHILS % (AUTO) 49.6 % (42-75); PLATELET COUNT 535 X10'3 (140-440); RED BLOOD COUNT 3.62 X10'6 (4.70-6.10); WHITE BLOOD COUNT 6.9 X10'3 (4.5-11.0)
[2017-12-07 06:25] LABS: ALBUMIN 1.7 G/DL (3.4-5.0); ANION GAP 8 (8-16); BLOOD UREA NITROGEN 5 MG/DL (7-18); BUN/CREATININE RATIO 8.3 (5.4-32.0); CALCIUM 8.7 MG/DL (8.5-10.1); CHLORIDE 105 MMOL/L (99-107); GLUCOSE 143 MG/DL (70-104); MAGNESIUM 1.7 MG/DL (1.5-2.4); POTASSIUM 3.4 MMOL/L (3.5-5.1); SODIUM 140 MMOL/L (135-145); TOTAL CARBON DIOXIDE 26.8 MMOL/L (24-32); eGFR > 90 ML/MIN
[2017-12-07 07:00] VITALS: BP 115/72
[2017-12-07] MEDS: K and/or MAG REPLACEMENT MC SCH (08:00)
[2017-12-07] MEDS: lactobacillus rhamnosus 10,000 MMU CELLS/CAPSULE PO SCH ×2 (08:56→17:12)
[2017-12-07] MEDS ORDERED: potassium Cl 40MEQ/NS 500ml 500 ML IV PRN ×2 (09:00)
[2017-12-07] MEDS ORDERED: potassium Cl 20 mEq SR tablet PO PRN (09:00)
[2017-12-07] MEDS: potassium Cl 20 mEq SR tablet PO PRN ×3 (09:18→17:12)
[2017-12-07] MEDS: levoFLOXACIN 750MG TABLET PO SCH (09:18)
[2017-12-07] MEDS: insulin Lispro (HumaLOG) vial - multi-dose SQ SCH ×3 (09:22→18:36)
[2017-12-07 18:50] VITALS: BP 134/80
[2017-12-07] MEDS: insulin glargine (Lantus) pen - multi-dose SQ SCH (21:18)
[2017-12-07] MEDS: temazepam 15mg capsule PO PRN (21:22)
[2017-12-08] VITALS (9 sets, daily range): BP systolic 95–129; BP diastolic 59–73
[2017-12-08] MEDS ORDERED: magnesium 4gm in 100ml NS 100 ML IV PRN (01:50)
[2017-12-08] MEDS ORDERED: potassium Cl 40MEQ/NS 500ml 500 ML IV PRN ×2 (01:50)
[2017-12-08] MEDS ORDERED: potassium Cl 20 mEq SR tablet PO PRN ×2 (01:50)
[2017-12-08 05:22] LABS: BASOPHILS % (AUTO) 0.4 % (0-1); EOSINOPHILS # (AUTO) 0.2 X10'3 (0-0.9); EOSINOPHILS % (AUTO) 2.8 % (0-6); HEMOGLOBIN 11.7 g/dl (14.0-17.9); LYMPHOCYTES # (AUTO) 2.7 X10'3 (1.1-4.8); LYMPHOCYTES % (AUTO) 36.2 % (21-51); MEAN CORPUSCULAR HEMOGLOBIN 31.1 PG (27.0-31.0); MEAN CORPUSCULAR HGB CONC 34.3 % (33.0-36.5); MEAN CORPUSCULAR VOLUME 90.7 FL (78-98); MONOCYTES # (AUTO) 0.7 X10'3 (0-0.9); NEUTROPHILS # (AUTO) 3.7 X10'3 (1.8-7.7); NEUTROPHILS % (AUTO) 50.6 % (42-75); PLATELET COUNT 604 X10'3 (140-440); RED BLOOD COUNT 3.75 X10'6 (4.70-6.10); RED CELL DISTRIBUTION WIDTH 14.1 % (11.5-14.5); WHITE BLOOD COUNT 7.4 X10'3 (4.5-11.0)
[2017-12-08 05:36] LABS: ANION GAP 8 (8-16); BLOOD UREA NITROGEN 5 MG/DL (7-18); BUN/CREATININE RATIO 7.1 (5.4-32.0); CALCIUM 9.4 MG/DL (8.5-10.1); CHLORIDE 103 MMOL/L (99-107); GLUCOSE 158 MG/DL (70-104); MAGNESIUM 1.8 MG/DL (1.5-2.4); POTASSIUM 4.1 MMOL/L (3.5-5.1); SODIUM 139 MMOL/L (135-145); TOTAL CARBON DIOXIDE 28.3 MMOL/L (24-32); eGFR > 90 ML/MIN
[2017-12-08] MEDS: lactobacillus rhamnosus 10,000 MMU CELLS/CAPSULE PO SCH ×2 (07:46→17:30)
[2017-12-08] MEDS: K and/or MAG REPLACEMENT MC SCH (08:00)
[2017-12-08] MEDS: insulin Lispro (HumaLOG) vial - multi-dose SQ SCH ×3 (09:43→19:21)
[2017-12-08] MEDS ORDERED: amiodarone 150mg/dext, iso-os 100 ML IV ONE (10:10)
[2017-12-08] MEDS: levoFLOXACIN 750MG TABLET PO SCH (10:37)
[2017-12-08] MEDS: amiodarone/D5 360MG/200ML BAG 200 ML IV SCH ×4 (10:56→21:24)
[2017-12-08] MEDS ORDERED: magnesium 2GM in 50ml NS 50 ML IV ONE (12:45)
[2017-12-08] MEDS: metoprolol tartrate 25mg tablet PO SCH ×2 (14:08→19:23)
[2017-12-08 14:59] LABS: PHOSPHORUS 5.1 MG/DL (2.3-4.5)
[2017-12-08] MEDS: insulin glargine (Lantus) pen - multi-dose SQ SCH (20:44)
[2017-12-09] VITALS (10 sets, daily range): BP systolic 100–124; BP diastolic 59–75
[2017-12-09 06:22] LABS: POTASSIUM 4.2 MMOL/L (3.5-5.1); TROPONIN I < 0.04 NG/ML (0.0-0.05)
[2017-12-09] MEDS: K and/or MAG REPLACEMENT MC SCH (08:00)
[2017-12-09] MEDS: lactobacillus rhamnosus 10,000 MMU CELLS/CAPSULE PO SCH ×2 (08:46→17:33)
[2017-12-09] MEDS: metoprolol tartrate 25mg tablet PO SCH ×2 (08:47→21:08)
[2017-12-09] MEDS: insulin Lispro (HumaLOG) vial - multi-dose SQ SCH ×3 (08:50→18:50)
[2017-12-09] MEDS: amiodarone/D5 360MG/200ML BAG 200 ML IV SCH (08:58)
[2017-12-09] MEDS: levoFLOXACIN 750MG TABLET PO SCH (11:05)
[2017-12-09] MEDS: temazepam 15mg capsule PO PRN (21:08)
[2017-12-09] MEDS: heparin, porcine 5000 units/ml vial SQ SCH (21:09)
[2017-12-09] MEDS: insulin glargine (Lantus) pen - multi-dose SQ SCH (21:19)
[2017-12-10 03:00] VITALS: BP 109/63
[2017-12-10 05:21] LABS: MAGNESIUM 1.9 MG/DL (1.5-2.4)
[2017-12-10 06:00] VITALS: BP 114/67
[2017-12-10] MEDS: lactobacillus rhamnosus 10,000 MMU CELLS/CAPSULE PO SCH (07:34)
[2017-12-10] MEDS: metoprolol tartrate 25mg tablet PO SCH (07:34)
[2017-12-10] MEDS: heparin, porcine 5000 units/ml vial SQ SCH (07:35)
[2017-12-10] MEDS: K and/or MAG REPLACEMENT MC SCH (08:00)
[2017-12-10] MEDS: levoFLOXACIN 750MG TABLET PO SCH (10:50)
[2017-12-10 11:00] VITALS: BP 100/61
[2017-12-10] MEDS: insulin Lispro (HumaLOG) vial - multi-dose SQ SCH (11:51)
== END 2017-12-10 11:55 | disposition home or self-care (01) | DRG 177 ==
LOC: ER 10:55 → ED HOLD 13:32 → SUR 3N 16:00 → PCU 3S 12-08 10:20
PROVIDERS: ADMIT Internal Medicine; ATTEND Family Medicine
PROC: 0W9930Z Drainage of Right Pleural Cavity with Drainage Device, Percutaneous Approach (ICD-10-PCS; principal; 2017-12-03)
DX: J86.9 Pyothorax without fistula (principal); J18.9 Pneumonia, unspecified organism; J96.01 Acute respiratory failure with hypoxia; I47.2 Ventricular tachycardia; J90 Pleural effusion, not elsewhere classified; E87.1 Hypo-osmolality and hyponatremia; R63.0 Anorexia; E11.65 Type 2 diabetes mellitus with hyperglycemia; F17.200 Nicotine dependence, unspecified, uncomplicated; Z82.49 Family history of ischemic heart disease and other diseases of the circulatory system; Z68.22 Body mass index [BMI] 22.0-22.9, adult; Z79.899 Other long term (current) drug therapy; Z79.82 Long term (current) use of aspirin; Z71.6 Tobacco abuse counseling
CPT/HCPCS: 32557; 36415; 71045; 71046; 80048; 80053; 81001; 82948; 83605; 83735; 84100; 84132; 84145; 84484; 85025; 85610; 85730; 87040; 87070; 87077; 93005; 93308; 96360; 99285; A6222; A6257; A6258; A6449; J0282; J1644; J1815; J1956; J2001; J3475; J7030

== ENCOUNTER 2023-09-12 16:23 | Emergency (ER) | payer SELFPAY ==
[~2023-09-12] VITALS: Ht 170.2 cm; Wt 65.2 kg
[~2023-09-12 16:23] MED LIST changes: -AZI25OT PO; -CEFD300C3 PO
[2023-09-12 17:32] VITALS: BP 134/81; PULSE 85; RESP 19; TEMP 98; O2SAT 98
[2023-09-12] MEDS ORDERED: NAPR-56 PO (17:44)
[2023-09-12] MEDS ORDERED: CLIN300C3 PO (17:44)
[2023-09-12] MEDS ORDERED: CEPH-585 PO (17:44)
== END 2023-09-12 18:00 | disposition home or self-care (01) ==
LOC: ER 16:24
DX: L03.032 Cellulitis of left toe (principal); E11.9 Type 2 diabetes mellitus without complications; Z79.82 Long term (current) use of aspirin; Z79.899 Other long term (current) drug therapy; Z72.89 Other problems related to lifestyle
CPT/HCPCS: 73630; 99283

== ENCOUNTER 2023-10-18 13:13 | Inpatient (IN) | payer MEDICAID ==
[~2023-10-18] VITALS: Ht 170.2 cm; Wt 64.3 kg
[~2023-10-18 13:13] MED LIST changes: +CEPH-585 PO
[2023-10-18 14:26] LABS: BASOPHILS % (AUTO) 0.5 % (0-1); EOSINOPHILS % (AUTO) 0.5 % (0-6); HEMOGLOBIN 15.3 g/dl (14.0-17.9); LYMPHOCYTES # (AUTO) 1.7 X10'3 (1.1-4.8); LYMPHOCYTES % (AUTO) 18.8 % (21-51); MEAN CORPUSCULAR HEMOGLOBIN 33.3 PG (27.0-31.0); MEAN CORPUSCULAR HGB CONC 34.1 g/dL (33.0-36.5); MEAN CORPUSCULAR VOLUME 97.7 FL (78-98); MEAN PLATELET VOLUME 8.2 FL (7.4-10.4); MONOCYTES # (AUTO) 1.1 X10'3 (0-0.9); MONOCYTES % (AUTO) 11.4 % (2-12); NEUTROPHILS # (AUTO) 6.3 X10'3 (1.8-7.7); NEUTROPHILS % (AUTO) 68.8 % (42-75); PLATELET COUNT 247 X10'3 (140-440); RED BLOOD COUNT 4.61 X10'6 (4.70-6.10); RED CELL DISTRIBUTION WIDTH 12.8 % (11.5-14.5); WHITE BLOOD COUNT 9.2 X10'3 (4.5-11.0)
[2023-10-18 14:41] LABS: ALANINE AMINOTRANSFERASE 21 U/L (12-78); ALBUMIN 3.5 G/DL (3.4-5.0); ALBUMIN/GLOBULIN RATIO 0.7 (1.1-1.5); ALKALINE PHOSPHATASE 97 IU/L (46-116); ANION GAP 9 (8-16); ASPARTATE AMINO TRANSFERASE 20 U/L (10-37); BILIRUBIN,TOTAL 0.4 MG/DL (0.1-1.0); BLOOD UREA NITROGEN 8 MG/DL (7-18); CALCIUM 9.2 MG/DL (8.5-10.1); CHLORIDE 95 MMOL/L (99-107); CREATININE 1.14 MG/DL (0.60-1.10); GLUCOSE 344 MG/DL (70-104); MAGNESIUM 1.7 MG/DL (1.5-2.4); POTASSIUM 4.5 MMOL/L (3.5-5.1); SODIUM 134 MMOL/L (135-145); TOTAL CARBON DIOXIDE 29.6 MMOL/L (24-32); TOTAL PROTEIN 8.3 G/DL (6.4-8.2); eCRCL 62 ML/MIN; eGFR 65 ML/MIN
[2023-10-18 17:44] LABS: BILIRUBIN,URINE SMALL (Neg); CLARITY,URINE CLEAR (Clear); COLOR,URINE YELLOW (Yellow); GLUCOSE, URINE 100 mg/dl (Neg); KETONES,URINE TRACE mg/dl (Neg); LEUKOCYTE ESTERASE ,URINE TRACE (Neg); NITRITES, URINE NEGATIVE (Neg); OCCULT BLOOD,URINE MODERATE (Neg); PH,URINE 5.5 (4.8-8.0); PROTEIN,URINE NEGATIVE (Neg); UROBILINOGEN,URINE 0.2 E.U/dL (0.2-1.0)
[2023-10-18 17:55] LABS: UA COLLECTION TYPE CLN CATCH MIDSTREAM
[2023-10-18 18:05] LABS: MUCUS STRANDS MANY /LPF (Neg)
[2023-10-18 18:06] LABS: BACTERIA,URINE FEW /HPF (Neg); SQUAMOUS EPITHELIAL CELL,UR FEW /LPF (FEW)
[2023-10-18] MEDS ORDERED: ringers solution, lacted 1,000 ML IV ONE (19:05)
[2023-10-18] MEDS ORDERED: VANCOMYCIN 1,500MG in NS 300ml IVPB IV ONE (20:00)
[2023-10-18] MEDS ORDERED: METF-1203 PO (23:33)
[2023-10-18] MEDS ORDERED: HYDR12.55 PO (23:33)
[2023-10-18] MEDS ORDERED: TRAM50TA2 PO (23:33)
[2023-10-18] MEDS ORDERED: GABA1TAB3 PO (23:33)
[2023-10-18] MEDS ORDERED: DIPH-681 PO (23:35)
[2023-10-18] MEDS ORDERED: MELA10TA2 PO (23:35)
[2023-10-19] MEDS ORDERED: piperacillin/tazo 3.375gm/50ml 50 ML IV SCH
[2023-10-19] MEDS ORDERED: magnesium hydroxide 30ml (MOM) UD suspension PO PRN (01:25)
[2023-10-19] MEDS ORDERED: ondansetron 4mg rapidly disintigrating tab PO PRN (01:25)
[2023-10-19] MEDS ORDERED: morphine 2 MG/ML inj. syringe IV PRN (01:25)
[2023-10-19] MEDS ORDERED: acetaminophen 325mg tablet PO PRN ×2 (01:25)
[2023-10-19] MEDS ORDERED: mag hydrox/Alum hydrox/simeth 30ml oral suspension PO PRN (01:25)
[2023-10-19] MEDS ORDERED: diphenhydrAMINE 50 mg/ml inj IV PRN (01:25)
[2023-10-19] MEDS ORDERED: HYDROcodone/acetaminophen 5mg/325mg tablet PO PRN (01:25)
[2023-10-19] MEDS ORDERED: bisacodyl 10mg suppository rectal RC PRN (01:25)
[2023-10-19] MEDS ORDERED: acetaminophen 650mg rectal suppository RC PRN (01:25)
[2023-10-19] MEDS ORDERED: ondansetron/PF 4mg/2ml inj IV PRN (01:25)
[2023-10-19] MEDS ORDERED: DEXTROSE 15 GM of carb/4 tabs (each vial/BOTTLE has 4 tablets) PO PRN ×2 (01:30)
[2023-10-19] MEDS ORDERED: dextrose 50%-water 50ml dispensing syringe IV PRN ×2 (01:30)
[2023-10-19] MEDS ORDERED: glucagon, human recombinant 1mg kit SUBCUT PRN (01:30)
[2023-10-19] MEDS ORDERED: MESSAGE TO PHARMACY PO ONE (01:30)
[2023-10-19] MEDS: diphenhydrAMINE 25mg capsule PO PRN ×2 (01:50→22:07)
[2023-10-19] MEDS: HYDROcodone/acetaminophen 10/325mg tab PO PRN ×3 (01:51→19:13)
[2023-10-19] MEDS: sodium chloride 0.45% 1,000 ML IV SCH ×3 (01:51→22:10)
[2023-10-19 01:52] LABS: HEMOGLOBIN A1C 8.4 % (4.5-6.2)
[2023-10-19 01:55] LABS: PHOSPHORUS 4.2 MG/DL (2.3-4.5); PRO BRAIN NATRIURETIC PEPTIDE 308 PG/ML (0-125)
[2023-10-19 06:30] VITALS: BP 172/88; PULSE 76; RESP 16; TEMP 97.9; O2SAT 96
[2023-10-19 07:45] VITALS: RESP 16
[2023-10-19] MEDS: docusate sod 100mg capsule PO SCH ×2 (08:19→19:12)
[2023-10-19] MEDS: pantoprazole 40mg Tablet.DR PO SCH (08:19)
[2023-10-19] MEDS: aspirin 81mg, enteric-coated 1 TAB TABLET.DR PO SCH (08:19)
[2023-10-19] MEDS: vancomycin/NS 1 GM ADD-VANTAGE 250 ML IV SCH ×2 (08:21→19:17)
[2023-10-19 08:28] LABS: APTT 28 SECONDS (22-32); PROTHROMBIN TIME 10.5 SECONDS (9.0-12.0)
[2023-10-19] MEDS: heparin, porcine 5000 units/ml vial SQ SCH ×2 (08:30→19:14)
[2023-10-19] MEDS: insulin Lispro (HumaLOG) vial - multi-dose SQ SCH ×3 (09:46→19:21)
[2023-10-19] MEDS: nicotine 21mg patch - 24 hr TD SCH (11:03)
[2023-10-19] MEDS: piperacillin/tazo 4.5gm/100ml 100 ML IV SCH ×2 (11:03→17:34)
[2023-10-19] MEDS ORDERED: LOSA25TA41 PO (11:36)
[2023-10-19 11:42] VITALS: BP 182/77; PULSE 72; RESP 14; TEMP 97.4; O2SAT 99
[2023-10-19] MEDS ORDERED: hydrALAZINE 20mg/ml inj. IV PRN (13:55)
[2023-10-19 18:00] VITALS: BP 138/75; PULSE 97; RESP 15; TEMP 98.2; O2SAT 98
[2023-10-19 20:00] VITALS: RESP 18; O2SAT 97
[2023-10-19 22:00] VITALS: BP 120/74; PULSE 89; RESP 18; TEMP 98; O2SAT 97
[2023-10-19] MEDS: insulin glargine (Lantus) pen - multi-dose SQ SCH (22:07)
[2023-10-20] MEDS: piperacillin/tazo 4.5gm/100ml 100 ML IV SCH ×3 (02:00→17:45)
[2023-10-20] MEDS: sodium chloride 0.45% 1,000 ML IV SCH ×2 (05:44→17:45)
[2023-10-20 06:00] VITALS: BP 147/90; PULSE 83; RESP 15; TEMP 98.1; O2SAT 98
[2023-10-20] MEDS ORDERED: VANCOMYCIN LEVEL IV ONE (07:30)
[2023-10-20] MEDS: HYDROcodone/acetaminophen 10/325mg tab PO PRN ×3 (08:05→21:55)
[2023-10-20] MEDS: pantoprazole 40mg Tablet.DR PO SCH (08:05)
[2023-10-20] MEDS: aspirin 81mg, enteric-coated 1 TAB TABLET.DR PO SCH (08:05)
[2023-10-20] MEDS: docusate sod 100mg capsule PO SCH ×2 (08:05→19:48)
[2023-10-20] MEDS: heparin, porcine 5000 units/ml vial SQ SCH ×2 (08:06→19:48)
[2023-10-20] MEDS: nicotine 21mg patch - 24 hr TD SCH (08:09)
[2023-10-20] MEDS: vancomycin/NS 1 GM ADD-VANTAGE 250 ML IV SCH ×2 (08:09→08:24)
[2023-10-20 08:30] LABS: BASOPHILS % (AUTO) 0.5 % (0-1); EOSINOPHILS # (AUTO) 0.2 X10'3 (0-0.9); EOSINOPHILS % (AUTO) 1.7 % (0-6); HEMATOCRIT 39.3 % (42.0-52.0); HEMOGLOBIN 13.3 g/dl (14.0-17.9); LYMPHOCYTES # (AUTO) 2.2 X10'3 (1.1-4.8); LYMPHOCYTES % (AUTO) 25.1 % (21-51); MEAN CORPUSCULAR HEMOGLOBIN 32.9 PG (27.0-31.0); MEAN CORPUSCULAR HGB CONC 33.9 g/dL (33.0-36.5); MEAN CORPUSCULAR VOLUME 97.2 FL (78-98); MONOCYTES # (AUTO) 1.2 X10'3 (0-0.9); MONOCYTES % (AUTO) 13.4 % (2-12); NEUTROPHILS # (AUTO) 5.3 X10'3 (1.8-7.7); NEUTROPHILS % (AUTO) 59.3 % (42-75); PLATELET COUNT 226 X10'3 (140-440); RED BLOOD COUNT 4.04 X10'6 (4.70-6.10); RED CELL DISTRIBUTION WIDTH 12.6 % (11.5-14.5); WHITE BLOOD COUNT 8.9 X10'3 (4.5-11.0)
[2023-10-20 08:49] LABS: ALANINE AMINOTRANSFERASE 18 U/L (12-78); ALBUMIN 2.9 G/DL (3.4-5.0); ALBUMIN/GLOBULIN RATIO 0.7 (1.1-1.5); ALKALINE PHOSPHATASE 75 IU/L (46-116); ANION GAP 11 (8-16); ASPARTATE AMINO TRANSFERASE 18 U/L (10-37); BILIRUBIN,TOTAL 0.4 MG/DL (0.1-1.0); BLOOD UREA NITROGEN 6 MG/DL (7-18); BUN/CREATININE RATIO 7.7 (10.0-20.0); CALCIUM 8.8 MG/DL (8.5-10.1); CHLORIDE 99 MMOL/L (99-107); CHOLESTEROL 146 MG/DL (0-200); CREATININE 0.78 MG/DL (0.60-1.10); GLUCOSE 154 MG/DL (70-104); HDL CHOLESTEROL 49 MG/DL (35-60); LDL CHOLESTEROL 77 MG/DL (50-100); POTASSIUM 3.7 MMOL/L (3.5-5.1); SODIUM 136 MMOL/L (135-145); TOTAL CARBON DIOXIDE 26.3 MMOL/L (24-32); TOTAL PROTEIN 7.3 G/DL (6.4-8.2); TRIGLYCERIDES 80 MG/DL (20-135); VANCOMYCIN,TROUGH 11.2 ug/mL (10.0-20.0); eCRCL 90 ML/MIN; eGFR > 90 ML/MIN
[2023-10-20] MEDS: insulin Lispro (HumaLOG) vial - multi-dose SQ SCH ×4 (09:02→21:47)
[2023-10-20 11:02] VITALS: BP 120/72; PULSE 83; RESP 16; TEMP 97.9; O2SAT 98
[2023-10-20 18:00] VITALS: BP 134/75; PULSE 80; RESP 18; TEMP 99.2; O2SAT 98
[2023-10-20] MEDS: VANCOmycin 1250MG/NS 250ml Bag 250 ML IV SCH (19:48)
[2023-10-20 20:20] VITALS: RESP 18; O2SAT 98
[2023-10-20] MEDS: insulin glargine (Lantus) pen - multi-dose SQ SCH (21:45)
[2023-10-20] MEDS: diphenhydrAMINE 25mg capsule PO PRN (21:54)
[2023-10-20 22:00] VITALS: BP 139/90; PULSE 88; RESP 20; TEMP 98.2; O2SAT 97
[2023-10-21] MEDS: piperacillin/tazo 4.5gm/100ml 100 ML IV SCH ×3 (02:25→17:43)
[2023-10-21] MEDS: sodium chloride 0.45% 1,000 ML IV SCH ×3 (03:25→22:17)
[2023-10-21 06:00] VITALS: BP 168/91; PULSE 91; RESP 16; TEMP 98.5; O2SAT 98
[2023-10-21 07:17] LABS: BASOPHILS % (AUTO) 0.5 % (0-1); EOSINOPHILS # (AUTO) 0.1 X10'3 (0-0.9); EOSINOPHILS % (AUTO) 1.3 % (0-6); HEMATOCRIT 41.4 % (42.0-52.0); HEMOGLOBIN 13.8 g/dl (14.0-17.9); LYMPHOCYTES # (AUTO) 2.3 X10'3 (1.1-4.8); LYMPHOCYTES % (AUTO) 22.1 % (21-51); MEAN CORPUSCULAR HEMOGLOBIN 32.9 PG (27.0-31.0); MEAN CORPUSCULAR HGB CONC 33.4 g/dL (33.0-36.5); MEAN CORPUSCULAR VOLUME 98.6 FL (78-98); MONOCYTES # (AUTO) 1.4 X10'3 (0-0.9); MONOCYTES % (AUTO) 13.4 % (2-12); NEUTROPHILS # (AUTO) 6.4 X10'3 (1.8-7.7); NEUTROPHILS % (AUTO) 62.7 % (42-75); PLATELET COUNT 235 X10'3 (140-440); RED BLOOD COUNT 4.19 X10'6 (4.70-6.10); RED CELL DISTRIBUTION WIDTH 12.6 % (11.5-14.5); WHITE BLOOD COUNT 10.3 X10'3 (4.5-11.0)
[2023-10-21 07:36] LABS: ALANINE AMINOTRANSFERASE 16 U/L (12-78); ALBUMIN 3.1 G/DL (3.4-5.0); ALBUMIN/GLOBULIN RATIO 0.6 (1.1-1.5); ALKALINE PHOSPHATASE 79 IU/L (46-116); ANION GAP 13 (8-16); ASPARTATE AMINO TRANSFERASE 20 U/L (10-37); BILIRUBIN,TOTAL 0.5 MG/DL (0.1-1.0); BLOOD UREA NITROGEN 7 MG/DL (7-18); BUN/CREATININE RATIO 10.4 (10.0-20.0); CALCIUM 9.5 MG/DL (8.5-10.1); CHLORIDE 100 MMOL/L (99-107); CREATININE 0.67 MG/DL (0.60-1.10); GLUCOSE 111 MG/DL (70-104); SODIUM 137 MMOL/L (135-145); TOTAL CARBON DIOXIDE 24.3 MMOL/L (24-32); eCRCL 105 ML/MIN; eGFR > 90 ML/MIN
[2023-10-21] MEDS: nicotine 21mg patch - 24 hr TD SCH (08:53)
[2023-10-21] MEDS: docusate sod 100mg capsule PO SCH ×2 (08:53→19:49)
[2023-10-21] MEDS: aspirin 81mg, enteric-coated 1 TAB TABLET.DR PO SCH (08:53)
[2023-10-21] MEDS: heparin, porcine 5000 units/ml vial SQ SCH ×2 (08:54→19:51)
[2023-10-21] MEDS: insulin Lispro (HumaLOG) vial - multi-dose SQ SCH ×3 (08:59→19:57)
[2023-10-21] MEDS: HYDROcodone/acetaminophen 10/325mg tab PO PRN ×3 (09:00→19:50)
[2023-10-21] MEDS: VANCOmycin 1250MG/NS 250ml Bag 250 ML IV SCH ×2 (09:00→19:57)
[2023-10-21] MEDS: pantoprazole 40mg Tablet.DR PO SCH (09:15)
[2023-10-21 10:00] VITALS: BP 132/73; PULSE 85; RESP 16; TEMP 98.3; O2SAT 98
[2023-10-21 18:00] VITALS: BP 163/89; PULSE 62; RESP 18; TEMP 98.4; O2SAT 97
[2023-10-21 22:00] VITALS: BP 144/116; PULSE 89; RESP 16; TEMP 98.3; O2SAT 98
[2023-10-21] MEDS ORDERED: LORazepam 1 MG tablet PO ONE (22:00)
[2023-10-21] MEDS ORDERED: temazepam 15mg capsule PO PRN (22:00)
[2023-10-21] MEDS: insulin glargine (Lantus) pen - multi-dose SQ SCH (22:27)
[2023-10-21 22:30] VITALS: BP 144/94
[2023-10-22] MEDS: piperacillin/tazo 4.5gm/100ml 100 ML IV SCH ×3 (01:22→18:05)
[2023-10-22 06:00] VITALS: BP 152/78; PULSE 91; RESP 18; TEMP 98.1; O2SAT 97
[2023-10-22] MEDS ORDERED: VANCOMYCIN LEVEL IV ONE (07:30)
[2023-10-22] MEDS: HYDROcodone/acetaminophen 10/325mg tab PO PRN ×3 (07:36→20:27)
[2023-10-22 08:00] VITALS: RESP 18; O2SAT 97
[2023-10-22] MEDS: docusate sod 100mg capsule PO SCH ×2 (08:13→20:26)
[2023-10-22] MEDS: aspirin 81mg, enteric-coated 1 TAB TABLET.DR PO SCH (08:13)
[2023-10-22] MEDS: heparin, porcine 5000 units/ml vial SQ SCH ×2 (08:13→20:27)
[2023-10-22] MEDS: pantoprazole 40mg Tablet.DR PO SCH (08:13)
[2023-10-22] MEDS: nicotine 21mg patch - 24 hr TD SCH (08:15)
[2023-10-22] MEDS: sodium chloride 0.45% 1,000 ML IV SCH ×2 (09:25→19:25)
[2023-10-22] MEDS: insulin Lispro (HumaLOG) vial - multi-dose SQ SCH ×3 (09:52→22:03)
[2023-10-22 10:00] VITALS: BP 121/69; PULSE 93; RESP 20; TEMP 98.1; O2SAT 97
[2023-10-22 10:18] LABS: BASOPHILS % (AUTO) 0.2 % (0-1); EOSINOPHILS # (AUTO) 0.2 X10'3 (0-0.9); EOSINOPHILS % (AUTO) 1.9 % (0-6); HEMATOCRIT 37.6 % (42.0-52.0); HEMOGLOBIN 12.7 g/dl (14.0-17.9); LYMPHOCYTES # (AUTO) 1.6 X10'3 (1.1-4.8); LYMPHOCYTES % (AUTO) 16.9 % (21-51); MEAN CORPUSCULAR HEMOGLOBIN 32.7 PG (27.0-31.0); MEAN CORPUSCULAR HGB CONC 33.7 g/dL (33.0-36.5); MEAN CORPUSCULAR VOLUME 97.3 FL (78-98); MEAN PLATELET VOLUME 8.1 FL (7.4-10.4); MONOCYTES # (AUTO) 1.2 X10'3 (0-0.9); MONOCYTES % (AUTO) 12.3 % (2-12); NEUTROPHILS # (AUTO) 6.5 X10'3 (1.8-7.7); NEUTROPHILS % (AUTO) 68.7 % (42-75); PLATELET COUNT 225 X10'3 (140-440); RED BLOOD COUNT 3.87 X10'6 (4.70-6.10); RED CELL DISTRIBUTION WIDTH 12.6 % (11.5-14.5); WHITE BLOOD COUNT 9.5 X10'3 (4.5-11.0)
[2023-10-22 10:32] LABS: ALANINE AMINOTRANSFERASE 18 U/L (12-78); ALBUMIN 2.7 G/DL (3.4-5.0); ALBUMIN/GLOBULIN RATIO 0.6 (1.1-1.5); ALKALINE PHOSPHATASE 71 IU/L (46-116); ANION GAP 7 (8-16); ASPARTATE AMINO TRANSFERASE 22 U/L (10-37); BILIRUBIN,TOTAL 0.4 MG/DL (0.1-1.0); BLOOD UREA NITROGEN 6 MG/DL (7-18); BUN/CREATININE RATIO 6.4 (10.0-20.0); CALCIUM 8.6 MG/DL (8.5-10.1); CHLORIDE 101 MMOL/L (99-107); CREATININE 0.94 MG/DL (0.60-1.10); GLUCOSE 321 MG/DL (70-104); POTASSIUM 4.2 MMOL/L (3.5-5.1); SODIUM 134 MMOL/L (135-145); TOTAL CARBON DIOXIDE 25.8 MMOL/L (24-32); TOTAL PROTEIN 7.2 G/DL (6.4-8.2); VANCOMYCIN,TROUGH 13.6 ug/mL (10.0-20.0); eCRCL 75 ML/MIN; eGFR 82 ML/MIN
[2023-10-22] MEDS: vancomycin 1,750 MG in NS 350ml IV soln IV SCH ×2 (12:11→20:32)
[2023-10-22] MEDS: morphine 2 MG/ML inj. syringe IV PRN (16:00)
[2023-10-22 18:00] VITALS: BP 161/75; PULSE 69; RESP 16; TEMP 97.2; O2SAT 99
[2023-10-22 22:00] VITALS: BP 133/61; PULSE 58; RESP 16; TEMP 97.6; O2SAT 99
[2023-10-22] MEDS: insulin glargine (Lantus) pen - multi-dose SQ SCH (22:00)
[2023-10-23] VITALS (18 sets, daily range): BP systolic 132–182; BP diastolic 71–122; PULSE 72–98; RESP 13–16; TEMP 97.8–98.4; O2SAT 94–99
[2023-10-23] MEDS: piperacillin/tazo 4.5gm/100ml 100 ML IV SCH ×3 (02:33→18:51)
[2023-10-23 06:06] LABS: BASOPHILS # (AUTO) 0.1 X10'3 (0-0.2); BASOPHILS % (AUTO) 0.8 % (0-1); EOSINOPHILS # (AUTO) 0.3 X10'3 (0-0.9); EOSINOPHILS % (AUTO) 4.1 % (0-6); HEMATOCRIT 37.4 % (42.0-52.0); HEMOGLOBIN 12.8 g/dl (14.0-17.9); LYMPHOCYTES # (AUTO) 1.9 X10'3 (1.1-4.8); LYMPHOCYTES % (AUTO) 22.7 % (21-51); MEAN CORPUSCULAR HEMOGLOBIN 33.2 PG (27.0-31.0); MEAN CORPUSCULAR HGB CONC 34.3 g/dL (33.0-36.5); MEAN PLATELET VOLUME 7.8 FL (7.4-10.4); MONOCYTES # (AUTO) 1.2 X10'3 (0-0.9); MONOCYTES % (AUTO) 14.4 % (2-12); NEUTROPHILS # (AUTO) 4.8 X10'3 (1.8-7.7); PLATELET COUNT 235 X10'3 (140-440); RED BLOOD COUNT 3.86 X10'6 (4.70-6.10); RED CELL DISTRIBUTION WIDTH 12.4 % (11.5-14.5); WHITE BLOOD COUNT 8.2 X10'3 (4.5-11.0)
[2023-10-23 06:16] LABS: ALANINE AMINOTRANSFERASE 24 U/L (12-78); ALBUMIN 2.5 G/DL (3.4-5.0); ALBUMIN/GLOBULIN RATIO 0.6 (1.1-1.5); ALKALINE PHOSPHATASE 67 IU/L (46-116); ANION GAP 7 (8-16); ASPARTATE AMINO TRANSFERASE 18 U/L (10-37); BILIRUBIN,TOTAL 0.4 MG/DL (0.1-1.0); BLOOD UREA NITROGEN 7 MG/DL (7-18); BUN/CREATININE RATIO 8.9 (10.0-20.0); CALCIUM 8.6 MG/DL (8.5-10.1); CHLORIDE 105 MMOL/L (99-107); CREATININE 0.79 MG/DL (0.60-1.10); GLUCOSE 141 MG/DL (70-104); POTASSIUM 3.9 MMOL/L (3.5-5.1); SODIUM 139 MMOL/L (135-145); TOTAL CARBON DIOXIDE 27.2 MMOL/L (24-32); TOTAL PROTEIN 6.8 G/DL (6.4-8.2); eCRCL 89 ML/MIN; eGFR > 90 ML/MIN
[2023-10-23] MEDS: aspirin 81mg, enteric-coated 1 TAB TABLET.DR PO SCH (06:58)
[2023-10-23] MEDS: heparin, porcine 5000 units/ml vial SQ SCH ×2 (06:59→20:28)
[2023-10-23] MEDS: pantoprazole 40mg Tablet.DR PO SCH (07:24)
[2023-10-23] MEDS: docusate sod 100mg capsule PO SCH ×2 (07:24→20:28)
[2023-10-23] MEDS: HYDROcodone/acetaminophen 10/325mg tab PO PRN ×3 (07:37→20:34)
[2023-10-23] MEDS: nicotine 21mg patch - 24 hr TD SCH (08:00)
[2023-10-23] MEDS: sodium chloride 0.45% 1,000 ML IV SCH ×2 (10:56→23:30)
[2023-10-23] MEDS: vancomycin 1,750 MG in NS 350ml IV soln IV SCH ×2 (10:57→23:14)
[2023-10-23] MEDS: morphine 2 MG/ML inj. syringe IV PRN ×2 (12:33→22:40)
[2023-10-23] MEDS ORDERED: morphine 4 MG/ML inj SYRINge IV PRN (16:10)
[2023-10-23] MEDS ORDERED: ondansetron/PF 4mg/2ml inj IV PRN (16:10)
[2023-10-23] MEDS ORDERED: fentaNYL/PF 50MCG/1 ML 2ML syringe IV PRN ×2 (16:10)
[2023-10-23] MEDS ORDERED: morphine 2 MG/ML inj. syringe IV PRN (16:10)
[2023-10-23] MEDS ORDERED: hydrALAZINE 20mg/ml inj. IV PRN (16:10)
[2023-10-23] MEDS ORDERED: ringers solution, lacted 1,000 ML IV SCH (16:10)
[2023-10-23] MEDS ORDERED: labetalol 20mg/4ml (5mg/ml) syringe IV PRN (16:10)
[2023-10-23] MEDS ORDERED: ondansetron/PF 4mg/2ml inj ONE (16:13)
[2023-10-23] MEDS ORDERED: midazolam 1 mg/ML 2ml injection ONE (16:13)
[2023-10-23] MEDS ORDERED: LIDOcaine 2% (20mg/ml) 5ml vial ONE (16:13)
[2023-10-23] MEDS ORDERED: fentaNYL/PF 50MCG/1 ML 2ML syringe ONE (16:13)
[2023-10-23] MEDS ORDERED: propofol inj 20 ML IV ONE (16:13)
[2023-10-23] MEDS ORDERED: bacitracin 15gm ointment TP ONE ×2 (16:19→16:20)
[2023-10-23] MEDS ORDERED: BUPIVAcaine 2.5mg/ml inj 50ml vial (contains preservative) ONE (16:20)
[2023-10-23] MEDS ORDERED: desflurane 240ml liquid inh. IH ONE (16:40)
[2023-10-23] MEDS ORDERED: BUPIVAcaine/PF 2.5 mg/ml (0.25%) 30ml vial IJ ONE (17:18)
[2023-10-23] MEDS: insulin Lispro (HumaLOG) vial - multi-dose SQ SCH (20:27)
[2023-10-23] MEDS ORDERED: VANCOMYCIN LEVEL IV ONE (22:30)
[2023-10-23] MEDS: insulin glargine (Lantus) pen - multi-dose SQ SCH (22:56)
[2023-10-24] MEDS: sodium chloride 0.45% 1,000 ML IV SCH (01:25)
[2023-10-24 02:00] VITALS: BP 164/72; PULSE 83; RESP 16; TEMP 98.2; O2SAT 97
[2023-10-24] MEDS: HYDROcodone/acetaminophen 10/325mg tab PO PRN ×3 (02:12→14:51)
[2023-10-24] MEDS: piperacillin/tazo 4.5gm/100ml 100 ML IV SCH ×2 (02:12→11:06)
[2023-10-24 07:10] VITALS: BP 155/76; PULSE 97; RESP 16; TEMP 97.8; O2SAT 95
[2023-10-24 07:27] LABS: BASOPHILS # (AUTO) 0.1 X10'3 (0-0.2); BASOPHILS % (AUTO) 0.8 % (0-1); EOSINOPHILS # (AUTO) 0.4 X10'3 (0-0.9); EOSINOPHILS % (AUTO) 4.5 % (0-6); HEMATOCRIT 39.2 % (42.0-52.0); HEMOGLOBIN 13.2 g/dl (14.0-17.9); LYMPHOCYTES # (AUTO) 2.2 X10'3 (1.1-4.8); LYMPHOCYTES % (AUTO) 26.2 % (21-51); MEAN CORPUSCULAR HEMOGLOBIN 32.6 PG (27.0-31.0); MEAN CORPUSCULAR HGB CONC 33.6 g/dL (33.0-36.5); MEAN PLATELET VOLUME 7.8 FL (7.4-10.4); MONOCYTES # (AUTO) 1.2 X10'3 (0-0.9); MONOCYTES % (AUTO) 14.2 % (2-12); NEUTROPHILS # (AUTO) 4.6 X10'3 (1.8-7.7); NEUTROPHILS % (AUTO) 54.3 % (42-75); PLATELET COUNT 273 X10'3 (140-440); RED BLOOD COUNT 4.04 X10'6 (4.70-6.10); RED CELL DISTRIBUTION WIDTH 12.7 % (11.5-14.5); WHITE BLOOD COUNT 8.5 X10'3 (4.5-11.0)
[2023-10-24 07:53] LABS: ALANINE AMINOTRANSFERASE 23 U/L (12-78); ALBUMIN 2.7 G/DL (3.4-5.0); ALBUMIN/GLOBULIN RATIO 0.6 (1.1-1.5); ALKALINE PHOSPHATASE 81 IU/L (46-116); ANION GAP 11 (8-16); ASPARTATE AMINO TRANSFERASE 22 U/L (10-37); BILIRUBIN,TOTAL 0.5 MG/DL (0.1-1.0); BLOOD UREA NITROGEN 6 MG/DL (7-18); BUN/CREATININE RATIO 6.1 (10.0-20.0); CALCIUM 9.4 MG/DL (8.5-10.1); CHLORIDE 105 MMOL/L (99-107); CREATININE 0.98 MG/DL (0.60-1.10); GLUCOSE 81 MG/DL (70-104); POTASSIUM 3.5 MMOL/L (3.5-5.1); SODIUM 143 MMOL/L (135-145); TOTAL CARBON DIOXIDE 26.6 MMOL/L (24-32); TOTAL PROTEIN 7.5 G/DL (6.4-8.2); eCRCL 72 ML/MIN; eGFR 78 ML/MIN
[2023-10-24] MEDS: morphine 2 MG/ML inj. syringe IV PRN (07:57)
[2023-10-24] MEDS: pantoprazole 40mg Tablet.DR PO SCH (08:30)
[2023-10-24] MEDS: docusate sod 100mg capsule PO SCH (08:30)
[2023-10-24] MEDS: aspirin 81mg, enteric-coated 1 TAB TABLET.DR PO SCH (08:30)
[2023-10-24] MEDS: nicotine 21mg patch - 24 hr TD SCH (08:31)
[2023-10-24] MEDS: heparin, porcine 5000 units/ml vial SQ SCH (08:32)
[2023-10-24] MEDS: insulin Lispro (HumaLOG) vial - multi-dose SQ SCH (09:48)
[2023-10-24] MEDS ORDERED: VANCOMYCIN 1,500MG in normal saline IV soln 300 ML IV SCH (11:00)
[2023-10-24 11:12] VITALS: BP 161/70; PULSE 81; RESP 20; TEMP 98.7; O2SAT 99
[2023-10-24] MEDS ORDERED: NICO-687 TD (12:10)
[2023-10-24] MEDS ORDERED: PREG100C PO (12:10)
[2023-10-24] MEDS ORDERED: GABA-530 PO (12:12)
[2023-10-24] MEDS ORDERED: HYDR-3973 PO ×2 (12:22→12:35)
[2023-10-24 14:51] VITALS: RESP 18
[2023-10-24] MEDS ORDERED: AMOX-117 PO (18:26)
[2023-10-25] MEDS ORDERED: HYDR-3973 PO (03:13)
[2023-10-25] MEDS ORDERED: VANCOMYCIN LEVEL IV ONE (22:30)
== END 2023-10-24 15:16 | disposition home or self-care (01) | DRG 314 ==
LOC: ER 13:13 → ED HOLD 10-19 01:29 → ORTHO 4S 10-19 04:45
PROVIDERS: ADMIT Family Medicine; ATTEND Internal Medicine
PROC: 0Y6Q0Z0 Detachment at Left 1st Toe, Complete, Open Approach (ICD-10-PCS; principal; 2023-10-23 16:40)
DX: E11.69 Type 2 diabetes mellitus with other specified complication (principal); N17.9 Acute kidney failure, unspecified; J90 Pleural effusion, not elsewhere classified; M86.172 Other acute osteomyelitis, left ankle and foot; I70.262 Atherosclerosis of native arteries of extremities with gangrene, left leg; E11.22 Type 2 diabetes mellitus with diabetic chronic kidney disease; L03.032 Cellulitis of left toe; M86.672 Other chronic osteomyelitis, left ankle and foot; E11.42 Type 2 diabetes mellitus with diabetic polyneuropathy; G89.4 Chronic pain syndrome; E78.5 Hyperlipidemia, unspecified; I12.9 Hypertensive chronic kidney disease with stage 1 through stage 4 chronic kidney disease, or unspecified chronic kidney disease; N18.9 Chronic kidney disease, unspecified; N39.0 Urinary tract infection, site not specified; E86.0 Dehydration; F17.210 Nicotine dependence, cigarettes, uncomplicated; J44.9 Chronic obstructive pulmonary disease, unspecified; Z79.84 Long term (current) use of oral hypoglycemic drugs; Z79.82 Long term (current) use of aspirin; Z87.01 Personal history of pneumonia (recurrent); Z79.899 Other long term (current) drug therapy; Z71.6 Tobacco abuse counseling
CPT/HCPCS: 36415; 71045; 73630; 80053; 80061; 80202; 81001; 82948; 83036; 83605; 83735; 83880; 84100; 84145; 85025; 85610; 85651; 85730; 87040; 87070; 87075; 87077; 87081; 87088; 87186; 93922; 93926; 97161; 97530; 99285; A4618; A6222; A6223; A6449; A7000; G0378; J0360; J1644; J1815; J2250; J2270; J2405; J2543; J2704; J3010; J3370; J3490; J7030; J7040; J7120; Q0163

== ENCOUNTER 2024-01-01 09:06 | Day surgery (SDC) | payer MEDICAID ==
[2023-12-25 12:01] LABS: BILIRUBIN,URINE NEGATIVE (Neg); CLARITY,URINE CLEAR (Clear); GLUCOSE, URINE 500 mg/dl (Neg); KETONES,URINE NEGATIVE (Neg); LEUKOCYTE ESTERASE ,URINE NEGATIVE (Neg); NITRITES, URINE NEGATIVE (Neg); OCCULT BLOOD,URINE NEGATIVE (Neg); PROTEIN,URINE NEGATIVE (Neg); UROBILINOGEN,URINE 0.2 E.U/dL (0.2-1.0)
[2023-12-25 12:07] LABS: COLOR,URINE DARK YELLOW (Yellow); UA COLLECTION TYPE NON-SPECIFIED
[2023-12-25 12:10] LABS: BASOPHILS % (AUTO) 0.5 % (0-1); EOSINOPHILS # (AUTO) 0.3 X10'3 (0-0.9); EOSINOPHILS % (AUTO) 3.5 % (0-6); LYMPHOCYTES # (AUTO) 2.6 X10'3 (1.1-4.8); LYMPHOCYTES % (AUTO) 30.1 % (21-51); MEAN CORPUSCULAR HEMOGLOBIN 33.2 PG (27.0-31.0); MEAN CORPUSCULAR HGB CONC 34.4 g/dL (33.0-36.5); MEAN CORPUSCULAR VOLUME 96.5 FL (78-98); MEAN PLATELET VOLUME 7.9 FL (7.4-10.4); MONOCYTES # (AUTO) 0.9 X10'3 (0-0.9); MONOCYTES % (AUTO) 10.4 % (2-12); NEUTROPHILS # (AUTO) 4.8 X10'3 (1.8-7.7); NEUTROPHILS % (AUTO) 55.5 % (42-75); PRE OP HEMOGLOBIN 13.4 g/dL (14.0-17.9); PRE OP PLATELET COUNT 286 X10'3 (140-440); PRE OP WHITE BLOOD COUNT 8.6 10'3 (4.8-10.8); RED BLOOD COUNT 4.04 X10'6 (4.70-6.10); RED CELL DISTRIBUTION WIDTH 13.4 % (11.5-14.5)
[2023-12-25 12:20] LABS: ALBUMIN 3.4 G/DL (3.4-5.0); ALBUMIN/GLOBULIN RATIO 0.7 (1.1-1.5); ALKALINE PHOSPHATASE 86 IU/L (46-116); BLOOD UREA NITROGEN 9 MG/DL (7-18); BUN/CREATININE RATIO 10.3 (10.0-20.0); CALCIUM 9.1 MG/DL (8.5-10.1); CHLORIDE 98 MMOL/L (99-107); CREATININE 0.87 MG/DL (0.60-1.10); PRE OP ALT 25 U/L (30-65); PRE OP ANION GAP 9 (8-16); PRE OP AST 20 U/L (10-37); PRE OP BILIRUB, TOTAL 0.4 MG/DL (0.0-1.0); PRE OP POTASSIUM 4.4 MMOL/L (3.4-5.1); PRE OP SODIUM 136 MMOL/L (135-145); TOTAL CARBON DIOXIDE 29.5 MMOL/L (24-32); TOTAL PROTEIN 8.1 G/DL (6.4-8.2); eGFR 89 ML/MIN
[2023-12-25 12:28] LABS: PRE OP GLUCOSE 341 MG/DL (70-104)
[2023-12-25 16:25] LABS: HEMOGLOBIN A1C 8.8 % (4.5-6.2)
[~2024-01-01] VITALS: Ht 170.2 cm; Wt 63.9 kg
[2024-01-01] VITALS (9 sets, daily range): BP systolic 133–166; BP diastolic 76–89; PULSE 68–81; RESP 14–16; TEMP 98.7; O2SAT 97–98
[2024-01-01] MEDS: cefazolin 2gm/D5W 100mL 100 ML IV ONE (05:30)
[~2024-01-01 09:06] MED LIST changes: +GABA-530 PO; -LACT1CAP74 PO; +METF-1203 PO; -METF500T PO; +PER5325T PO
[2024-01-01] MEDS: ringers solution, lacted 1,000 ML IV SCH (09:42)
[2024-01-01] MEDS: famotidine 20mg tablet PO ONE (09:42)
[2024-01-01] MEDS ORDERED: ringers solution, lacted 1,000 ML IV SCH (12:10)
[2024-01-01] MEDS ORDERED: morphine 4 MG/ML inj SYRINge IV PRN (12:10)
[2024-01-01] MEDS ORDERED: fentaNYL/PF 50MCG/1 ML 2ML syringe IV PRN ×2 (12:10)
[2024-01-01] MEDS ORDERED: hydrALAZINE 20mg/ml inj. IV PRN (12:10)
[2024-01-01] MEDS ORDERED: morphine 2 MG/ML inj. syringe IV PRN (12:10)
[2024-01-01] MEDS ORDERED: labetalol 20mg/4ml (5mg/ml) syringe IV PRN (12:10)
[2024-01-01] MEDS ORDERED: ondansetron/PF 4mg/2ml inj IV PRN (12:10)
[2024-01-01] MEDS ORDERED: midazolam 1 mg/ML 2ml injection ONE (12:40)
[2024-01-01] MEDS ORDERED: fentaNYL/PF 50MCG/1 ML 2ML syringe ONE (12:40)
[2024-01-01] MEDS ORDERED: dexamethasone sod phosphate 10mg/ml inj ONE (12:42)
[2024-01-01] MEDS ORDERED: hydrALAZINE 20mg/ml inj. IV ONE (12:42)
[2024-01-01] MEDS ORDERED: desflurane 240ml liquid inh. IH ONE (12:42)
[2024-01-01] MEDS ORDERED: ondansetron/PF 4mg/2ml inj ONE (12:42)
[2024-01-01] MEDS ORDERED: LIDOcaine 2% (20mg/ml) 5ml vial ONE (12:44)
[2024-01-01] MEDS ORDERED: propofol inj 20 ML IV ONE (12:44)
[2024-01-01] MEDS: BUPIVAcaine/PF 2.5mg/ml (0.25%) 10ml vial ONE (13:09)
[2024-01-01] MEDS: bacitracin 15gm ointment TP ONE (13:10)
[2024-01-01] MEDS ORDERED: povidone-iodine 10% ointment 1 APPLIC APPLIC TP ONE (13:26)
== END 2024-01-01 14:45 | disposition home or self-care (01) ==
LOC: PAS 09:06
PROVIDERS: ATTEND Podiatrist Foot & Ankle Surgery
DX: E11.69 Type 2 diabetes mellitus with other specified complication (principal); M86.8X7 Other osteomyelitis, ankle and foot; I10 Essential (primary) hypertension; E55.9 Vitamin D deficiency, unspecified; Z79.899 Other long term (current) drug therapy; Z79.84 Long term (current) use of oral hypoglycemic drugs; Z98.890 Other specified postprocedural states; F17.210 Nicotine dependence, cigarettes, uncomplicated; Z72.89 Other problems related to lifestyle
CPT/HCPCS: 28810; 36415; 73620; 80053; 81003; 82948; 83036; 85025; 87070; 87075; 87077; 87186; A6223; J0360; J0690; J1100; J2250; J2405; J2704; J3010; J3490; J7030; J7120; Z7506; Z7508; Z7512; 76000; A4618; A6253; A6449; A7000

== ENCOUNTER 2024-01-08 12:12 | Inpatient (IN) | payer MEDICAID ==
[2024-01-07 16:00] LABS: BASOPHILS # (AUTO) 0.1 X10'3 (0-0.2); BASOPHILS % (AUTO) 0.5 % (0-1); EOSINOPHILS # (AUTO) 0.2 X10'3 (0-0.9); EOSINOPHILS % (AUTO) 1.6 % (0-6); LYMPHOCYTES % (AUTO) 23.7 % (21-51); MEAN CORPUSCULAR HEMOGLOBIN 32.7 PG (27.0-31.0); MEAN CORPUSCULAR HGB CONC 34.1 g/dL (33.0-36.5); MEAN CORPUSCULAR VOLUME 95.9 FL (78-98); MEAN PLATELET VOLUME 8.3 FL (7.4-10.4); MONOCYTES # (AUTO) 1.5 X10'3 (0-0.9); MONOCYTES % (AUTO) 12.3 % (2-12); NEUTROPHILS # (AUTO) 7.8 X10'3 (1.8-7.7); NEUTROPHILS % (AUTO) 61.9 % (42-75); PRE OP HEMATOCRIT 40.1 % (42.0-52.0); PRE OP HEMOGLOBIN 13.7 g/dL (14.0-17.9); PRE OP PLATELET COUNT 322 X10'3 (140-440); PRE OP WHITE BLOOD COUNT 12.6 10'3 (4.8-10.8); RED BLOOD COUNT 4.18 X10'6 (4.70-6.10); RED CELL DISTRIBUTION WIDTH 13.4 % (11.5-14.5)
[2024-01-07 17:02] LABS: ALBUMIN 3.4 G/DL (3.4-5.0); ALBUMIN/GLOBULIN RATIO 0.7 (1.1-1.5); ALKALINE PHOSPHATASE 86 IU/L (46-116); BLOOD UREA NITROGEN 11 MG/DL (7-18); BUN/CREATININE RATIO 12.4 (10.0-20.0); CALCIUM 9.9 MG/DL (8.5-10.1); CHLORIDE 97 MMOL/L (99-107); CREATININE 0.89 MG/DL (0.60-1.10); PRE OP ALT 18 U/L (30-65); PRE OP ANION GAP 7 (8-16); PRE OP AST 9 U/L (10-37); PRE OP BILIRUB, TOTAL 0.4 MG/DL (0.0-1.0); PRE OP POTASSIUM 4.6 MMOL/L (3.4-5.1); PRE OP SODIUM 134 MMOL/L (135-145); TOTAL CARBON DIOXIDE 30.3 MMOL/L (24-32); TOTAL PROTEIN 8.5 G/DL (6.4-8.2); eGFR 87 ML/MIN
[2024-01-07 17:05] LABS: PRE OP GLUCOSE 263 MG/DL (70-104)
[2024-01-07 17:57] LABS: PRE OP INR 0.9 INR
[2024-01-08] VITALS (28 sets, daily range): BP systolic 103–175; BP diastolic 56–84; PULSE 77–100; RESP 10–23; TEMP 98; O2SAT 98–100
[~2024-01-08] VITALS: Ht 170.2 cm; Wt 63.1 kg
[2024-01-08] MEDS: cefazolin 2gm/D5W 100mL 100 ML IV ONE (05:30)
[~2024-01-08 12:12] MED LIST changes: -GABA-530 PO; +GABA600T13 PO; -METF-1203 PO; +METF-438 PO
[2024-01-08] MEDS ORDERED: iohexol 350MG/ML 100ml bottle IV ONE (12:50)
[2024-01-08] MEDS ORDERED: iohexol 350 MG/ML 50ML vial IV ONE (12:50)
[2024-01-08] MEDS ORDERED: heparin 10,000 units/1 ML INJ ONE (13:23)
[2024-01-08] MEDS ORDERED: iohexol 300 MG/1 ML 50ml polymer ONE ×2 (13:23→17:56)
[2024-01-08 13:36] LABS: PRE OP PARTIAL THROMB. TIME 28 SECONDS (22-32); PROTHROMBIN TIME 10.8 SECONDS (9.0-12.0)
[2024-01-08] MEDS ORDERED: MIDAZolam 1 MG/ML 5ML VIAL ONE (13:51)
[2024-01-08] MEDS ORDERED: fentaNYL/PF 50MCG/1 ML 2ML syringe ONE (13:51)
[2024-01-08] MEDS: insulin regular, human 10 units/0.1 ml syringe IV ONE (14:14)
[2024-01-08] MEDS ORDERED: BUPIVAcaine/dex-water/PF 7.5 mg/ml 2ml ampul ONE (14:25)
[2024-01-08] MEDS ORDERED: sevoflurane 250ml liquid IH ONE (14:25)
[2024-01-08] MEDS ORDERED: ondansetron/PF 4mg/2ml inj ONE (14:25)
[2024-01-08] MEDS ORDERED: glycopyrrolate 0.2mg/ml inj ONE (14:25)
[2024-01-08] MEDS ORDERED: neostigmine methylsulfate 1 MG/ML 10ml vial ONE (14:25)
[2024-01-08] MEDS ORDERED: propofol 10mg/ml 20ml vial IV ONE (14:25)
[2024-01-08] MEDS ORDERED: dexamethasone sod phosphate 10mg/ml inj ONE (14:25)
[2024-01-08] MEDS ORDERED: LIDOcaine 2% (20mg/ml) 5ml vial ONE (14:25)
[2024-01-08] MEDS ORDERED: morphine /PF 1mg/ml 10ml inj. ONE (14:39)
[2024-01-08] MEDS ORDERED: ePHEDrine 50MG/ML INJ. ONE (14:58)
[2024-01-08] MEDS: heparin 10,000 units/1 ML INJ IV ONE (15:58)
[2024-01-08] MEDS: iohexol 300 MG/1 ML 50ml polymer IV ONE (16:01)
[2024-01-08] MEDS ORDERED: PCA WASTE DOCUMENTATION 1 MG ML MC SCH (17:21)
[2024-01-08] MEDS ORDERED: enalaprilat dihydrate 2.5mg/2ml vial IV PRN (17:25)
[2024-01-08] MEDS ORDERED: ondansetron/PF 4mg/2ml inj IV PRN ×3 (17:25→19:25)
[2024-01-08] MEDS ORDERED: meperidine/PF 25mg/ml syringe IV PRN ×2 (17:25)
[2024-01-08] MEDS ORDERED: morphine 2 MG/ML inj. syringe IV PRN (17:25)
[2024-01-08] MEDS ORDERED: morphine 4 MG/ML inj SYRINge IV PRN (17:25)
[2024-01-08] MEDS ORDERED: proCHLORperazine 10 MG/2 ml inj IV PRN (17:25)
[2024-01-08] MEDS ORDERED: naloxone 2mg/2ml inj 1.3 MG in normal saline 500ml IV soln 500 ML IV PRN (17:25)
[2024-01-08] MEDS ORDERED: albumin (Human) 5% 250ml 250 ML IV ONE ×2 (17:43)
[2024-01-08] MEDS ORDERED: protamine sulfate 10mg/ml inj. ONE (17:49)
[2024-01-08] MEDS ORDERED: heparin 1,000unit/ml 10ml vial 10 ML ONE (18:41)
[2024-01-08 19:20] LABS: APTT 30 SECONDS (22-32)
[2024-01-08] MEDS ORDERED: naloxone 0.4 mg/ml inj IV PRN (19:25)
[2024-01-08] MEDS: apixaban 5mg tablet PO ONE (19:46)
[2024-01-08] MEDS: meperidine/PF 25mg/ml syringe IV PRN (20:37)
[2024-01-08] MEDS: ceFOXitin 2GM-NS 100mL ADDvant 100 ML IV SCH (21:29)
[2024-01-08] MEDS: diphenhydrAMINE 50 mg/ml inj IV PRN (22:45)
[2024-01-08] MEDS: HYDROmorphone inj. 0.5 MG/0.5 ML DISP.SYRIN IV PRN (22:45)
[2024-01-08] MEDS: labetalol 20mg/4ml (5mg/ml) syringe IV PRN (23:15)
[2024-01-08] MEDS: Potassium Cl inj 20 MEQ in ringers solution, lacted 1,000 ML IV SCH (23:18)
[2024-01-08] MEDS: HYDROcodone/acetaminophen 10/325mg tab PO PRN (23:25)
[2024-01-08] MEDS: ringers solution, lacted 1,000 ML IV SCH ×2 (23:36→23:38)
[2024-01-08] MEDS: famotidine 20mg tablet PO ONE (23:37)
[2024-01-08] MEDS: insulin regular, human 10 units/0.1 ml syringe SQ ONE (23:37)
[2024-01-08] MEDS: MESSAGE TO NURSING PO NR (23:37)
[2024-01-09] VITALS (21 sets, daily range): BP systolic 107–141; BP diastolic 45–73; PULSE 79–104; RESP 10–26; TEMP 97.9–98; O2SAT 94–99
[2024-01-09 02:56] LABS: BASOPHILS # (AUTO) 0.1 X10'3 (0-0.2); BASOPHILS % (AUTO) 0.4 % (0-1); EOSINOPHILS # (AUTO) 0.1 X10'3 (0-0.9); EOSINOPHILS % (AUTO) 0.9 % (0-6); HEMATOCRIT 25.5 % (42.0-52.0); HEMOGLOBIN 8.4 g/dl (14.0-17.9); LYMPHOCYTES # (AUTO) 2.8 X10'3 (1.1-4.8); MEAN CORPUSCULAR HEMOGLOBIN 31.5 PG (27.0-31.0); MEAN CORPUSCULAR HGB CONC 32.9 g/dL (33.0-36.5); MEAN CORPUSCULAR VOLUME 95.6 FL (78-98); MONOCYTES # (AUTO) 1.8 X10'3 (0-0.9); MONOCYTES % (AUTO) 15.6 % (2-12); NEUTROPHILS # (AUTO) 6.8 X10'3 (1.8-7.7); NEUTROPHILS % (AUTO) 59.1 % (42-75); PLATELET COUNT 215 X10'3 (140-440); RED BLOOD COUNT 2.67 X10'6 (4.70-6.10); RED CELL DISTRIBUTION WIDTH 13.5 % (11.5-14.5); WHITE BLOOD COUNT 11.5 X10'3 (4.5-11.0)
[2024-01-09 03:07] LABS: ALBUMIN 2.7 G/DL (3.4-5.0); ANION GAP 11 (8-16); BLOOD UREA NITROGEN 7 MG/DL (7-18); CALCIUM 8.1 MG/DL (8.5-10.1); CHLORIDE 104 MMOL/L (99-107); GLUCOSE 209 MG/DL (70-104); POTASSIUM 4.3 MMOL/L (3.5-5.1); SODIUM 139 MMOL/L (135-145); TOTAL CARBON DIOXIDE 24.4 MMOL/L (24-32); eCRCL 99 ML/MIN; eGFR > 90 ML/MIN
[2024-01-09] MEDS: apixaban 5mg tablet PO SCH (08:02)
[2024-01-09] MEDS ORDERED: DEXTROSE 15 GM of carb/4 tabs (each vial/BOTTLE has 4 tablets) PO PRN (08:20)
[2024-01-09] MEDS ORDERED: glucagon, human recombinant 1mg kit SUBCUT PRN (08:20)
[2024-01-09] MEDS ORDERED: dextrose 50%-water 50ml dispensing syringe IV PRN ×2 (08:20)
[2024-01-09] MEDS: MESSAGE TO PHARMACY PO ONE (08:56)
[2024-01-09] MEDS: insulin Lispro (HumaLOG) vial - multi-dose SQ SCH (09:52)
[2024-01-09] MEDS: acetaminophen 325mg tablet PO PRN (13:28)
[2024-01-09] MEDS: gabapentin 300mg capsule PO SCH (19:44)
[2024-01-09] MEDS: insulin glargine (Lantus) pen - multi-dose SQ SCH (22:24)
[2024-01-10 06:00] VITALS: BP 133/70; PULSE 87; RESP 19; TEMP 98.9; O2SAT 98
[2024-01-10 06:52] LABS: BASOPHILS % (AUTO) 0.1 % (0-1); EOSINOPHILS % (AUTO) 0.1 % (0-6); HEMATOCRIT 25.7 % (42.0-52.0); HEMOGLOBIN 8.7 g/dl (14.0-17.9); LYMPHOCYTES # (AUTO) 1.6 X10'3 (1.1-4.8); LYMPHOCYTES % (AUTO) 10.7 % (21-51); MEAN CORPUSCULAR HEMOGLOBIN 32.1 PG (27.0-31.0); MEAN CORPUSCULAR HGB CONC 33.8 g/dL (33.0-36.5); MEAN CORPUSCULAR VOLUME 94.8 FL (78-98); MEAN PLATELET VOLUME 7.6 FL (7.4-10.4); MONOCYTES # (AUTO) 2.1 X10'3 (0-0.9); MONOCYTES % (AUTO) 14.6 % (2-12); NEUTROPHILS # (AUTO) 10.9 X10'3 (1.8-7.7); NEUTROPHILS % (AUTO) 74.5 % (42-75); PLATELET COUNT 236 X10'3 (140-440); RED BLOOD COUNT 2.71 X10'6 (4.70-6.10); RED CELL DISTRIBUTION WIDTH 13.4 % (11.5-14.5); WHITE BLOOD COUNT 14.7 X10'3 (4.5-11.0)
[2024-01-10 07:29] LABS: ALBUMIN 2.4 G/DL (3.4-5.0); ANION GAP 9 (8-16); BLOOD UREA NITROGEN 7 MG/DL (7-18); BUN/CREATININE RATIO 8.9 (10.0-20.0); CALCIUM 8.1 MG/DL (8.5-10.1); CHLORIDE 100 MMOL/L (99-107); CREATININE 0.79 MG/DL (0.60-1.10); GLUCOSE 278 MG/DL (70-104); SODIUM 135 MMOL/L (135-145); TOTAL CARBON DIOXIDE 26.1 MMOL/L (24-32); eCRCL 88 ML/MIN; eGFR > 90 ML/MIN
[2024-01-10 08:00] VITALS: RESP 14; O2SAT 96
[2024-01-10] MEDS: magnesium hydroxide 30ml (MOM) UD suspension PO ONE (10:57)
[2024-01-10 14:30] VITALS: BP 119/63; PULSE 86; RESP 18; TEMP 98.3; O2SAT 99
[2024-01-10 17:58] VITALS: BP 137/70; PULSE 95; RESP 14; TEMP 98.1; O2SAT 99
[2024-01-10 19:00] VITALS: RESP 12; O2SAT 98
[2024-01-10 22:00] VITALS: BP 111/60; PULSE 97; RESP 12; TEMP 98.8; O2SAT 99
[2024-01-11 06:00] VITALS: BP 134/85; PULSE 89; RESP 14; TEMP 97.3; O2SAT 98
[2024-01-11 09:08] LABS: BASOPHILS % (AUTO) 0.2 % (0-1); EOSINOPHILS # (AUTO) 0.1 X10'3 (0-0.9); EOSINOPHILS % (AUTO) 0.4 % (0-6); HEMATOCRIT 24.5 % (42.0-52.0); HEMOGLOBIN 8.2 g/dl (14.0-17.9); LYMPHOCYTES # (AUTO) 2.4 X10'3 (1.1-4.8); LYMPHOCYTES % (AUTO) 15.1 % (21-51); MEAN CORPUSCULAR HEMOGLOBIN 31.9 PG (27.0-31.0); MEAN CORPUSCULAR HGB CONC 33.3 g/dL (33.0-36.5); MEAN CORPUSCULAR VOLUME 96.1 FL (78-98); MEAN PLATELET VOLUME 7.9 FL (7.4-10.4); MONOCYTES # (AUTO) 1.8 X10'3 (0-0.9); MONOCYTES % (AUTO) 11.5 % (2-12); NEUTROPHILS # (AUTO) 11.4 X10'3 (1.8-7.7); NEUTROPHILS % (AUTO) 72.8 % (42-75); PLATELET COUNT 256 X10'3 (140-440); RED BLOOD COUNT 2.55 X10'6 (4.70-6.10); WHITE BLOOD COUNT 15.6 X10'3 (4.5-11.0)
[2024-01-11 09:22] LABS: ALBUMIN 2.3 G/DL (3.4-5.0); ANION GAP 7 (8-16); BLOOD UREA NITROGEN 8 MG/DL (7-18); BUN/CREATININE RATIO 9.1 (10.0-20.0); CALCIUM 8.5 MG/DL (8.5-10.1); CHLORIDE 100 MMOL/L (99-107); CREATININE 0.88 MG/DL (0.60-1.10); GLUCOSE 174 MG/DL (70-104); POTASSIUM 3.7 MMOL/L (3.5-5.1); SODIUM 135 MMOL/L (135-145); eCRCL 79 ML/MIN; eGFR 88 ML/MIN
[2024-01-11 10:00] VITALS: BP 124/68; PULSE 88; RESP 16; TEMP 98.3; O2SAT 99
[2024-01-11] MEDS: magnesium hydroxide 30ml (MOM) UD suspension PO ONE (17:33)
[2024-01-11 18:30] VITALS: BP 114/72; PULSE 95; RESP 14; TEMP 98.9; O2SAT 96
[2024-01-11 22:00] VITALS: BP 113/65; PULSE 74; RESP 16; TEMP 98.1; O2SAT 96
[2024-01-12 06:00] VITALS: BP 107/68; PULSE 69; RESP 18; TEMP 97.8; O2SAT 97
[2024-01-12 07:45] VITALS: RESP 18; O2SAT 97
[2024-01-12 07:50] LABS: BASOPHILS % (AUTO) 0.3 % (0-1); EOSINOPHILS # (AUTO) 0.2 X10'3 (0-0.9); EOSINOPHILS % (AUTO) 1.4 % (0-6); HEMATOCRIT 24.7 % (42.0-52.0); HEMOGLOBIN 8.4 g/dl (14.0-17.9); LYMPHOCYTES # (AUTO) 2.3 X10'3 (1.1-4.8); LYMPHOCYTES % (AUTO) 19.8 % (21-51); MEAN CORPUSCULAR HEMOGLOBIN 32.3 PG (27.0-31.0); MEAN CORPUSCULAR HGB CONC 33.9 g/dL (33.0-36.5); MEAN CORPUSCULAR VOLUME 95.1 FL (78-98); MEAN PLATELET VOLUME 7.4 FL (7.4-10.4); MONOCYTES # (AUTO) 1.4 X10'3 (0-0.9); MONOCYTES % (AUTO) 12.2 % (2-12); NEUTROPHILS # (AUTO) 7.8 X10'3 (1.8-7.7); NEUTROPHILS % (AUTO) 66.3 % (42-75); PLATELET COUNT 293 X10'3 (140-440); RED CELL DISTRIBUTION WIDTH 12.6 % (11.5-14.5); WHITE BLOOD COUNT 11.7 X10'3 (4.5-11.0)
[2024-01-12 08:05] LABS: ALBUMIN 2.1 G/DL (3.4-5.0); ANION GAP 7 (8-16); BLOOD UREA NITROGEN 9 MG/DL (7-18); CALCIUM 8.2 MG/DL (8.5-10.1); CHLORIDE 102 MMOL/L (99-107); CREATININE 0.75 MG/DL (0.60-1.10); GLUCOSE 170 MG/DL (70-104); POTASSIUM 4.1 MMOL/L (3.5-5.1); SODIUM 138 MMOL/L (135-145); TOTAL CARBON DIOXIDE 29.4 MMOL/L (24-32); eCRCL 92 ML/MIN; eGFR > 90 ML/MIN
[2024-01-12 10:00] VITALS: BP 115/61; PULSE 76; RESP 16; TEMP 98.3; O2SAT 96
[2024-01-12 19:50] VITALS: BP_SYST 115; BP_SYST 120; BP_DIAS 55; BP_DIAS 61; PULSE 76; PULSE 83; RESP 16; TEMP 97.5; TEMP 98.3; O2SAT 96; O2SAT 99
[2024-01-12 22:00] VITALS: BP 124/70; PULSE 87; RESP 14; TEMP 98.2; O2SAT 99
[2024-01-12 23:30] VITALS: RESP 16
[2024-01-13] VITALS (7 sets, daily range): BP systolic 105–154; BP diastolic 58–73; PULSE 71–96; RESP 14–20; TEMP 98–98.8; O2SAT 98–99
[2024-01-13] MEDS: mupirocin 2% ointment 22GM TP SCH (07:44)
[2024-01-13 08:06] LABS: BASOPHILS % (AUTO) 0.6 % (0-1); EOSINOPHILS # (AUTO) 0.3 X10'3 (0-0.9); EOSINOPHILS % (AUTO) 3.8 % (0-6); HEMATOCRIT 23.9 % (42.0-52.0); HEMOGLOBIN 8.2 g/dl (14.0-17.9); LYMPHOCYTES # (AUTO) 2.2 X10'3 (1.1-4.8); LYMPHOCYTES % (AUTO) 27.5 % (21-51); MEAN CORPUSCULAR HEMOGLOBIN 32.5 PG (27.0-31.0); MEAN CORPUSCULAR HGB CONC 34.2 g/dL (33.0-36.5); MEAN CORPUSCULAR VOLUME 94.8 FL (78-98); MEAN PLATELET VOLUME 7.4 FL (7.4-10.4); MONOCYTES % (AUTO) 12.7 % (2-12); NEUTROPHILS # (AUTO) 4.4 X10'3 (1.8-7.7); NEUTROPHILS % (AUTO) 55.4 % (42-75); PLATELET COUNT 346 X10'3 (140-440); RED BLOOD COUNT 2.52 X10'6 (4.70-6.10); RED CELL DISTRIBUTION WIDTH 12.8 % (11.5-14.5); WHITE BLOOD COUNT 7.9 X10'3 (4.5-11.0)
[2024-01-13 08:22] LABS: ALBUMIN 2.2 G/DL (3.4-5.0); ANION GAP 5 (8-16); BLOOD UREA NITROGEN 11 MG/DL (7-18); BUN/CREATININE RATIO 13.8 (10.0-20.0); CALCIUM 8.4 MG/DL (8.5-10.1); CHLORIDE 103 MMOL/L (99-107); GLUCOSE 150 MG/DL (70-104); POTASSIUM 4.2 MMOL/L (3.5-5.1); SODIUM 139 MMOL/L (135-145); TOTAL CARBON DIOXIDE 30.8 MMOL/L (24-32); eCRCL 87 ML/MIN; eGFR > 90 ML/MIN
[2024-01-13] MEDS: lactose-reduced food (Ensure High Protein) 237ml bottle PO SCH (12:41)
[2024-01-13] MEDS: magnesium hydroxide 30ml (MOM) UD suspension PO ONE (20:30)
[2024-01-14 07:00] VITALS: BP 167/74; PULSE 90; RESP 16; TEMP 98.5; O2SAT 98
[2024-01-14 08:29] VITALS: RESP 16; O2SAT 98
[2024-01-14 10:00] VITALS: BP 118/68; PULSE 83; RESP 16; TEMP 97.6; O2SAT 99
[2024-01-14 13:49] VITALS: RESP 16; O2SAT 98
[2024-01-14 19:00] VITALS: BP 125/72; PULSE 79; RESP 14; RESP 20; TEMP 98.1; O2SAT 98
[2024-01-14 22:00] VITALS: BP 126/67; PULSE 87; RESP 14; TEMP 97.9; O2SAT 98
[2024-01-14] MEDS: HYDROcodone/acetaminophen 10/325mg tab PO PRN (22:09)
[2024-01-15 07:00] VITALS: BP 155/70; PULSE 84; RESP 15; TEMP 98.3; O2SAT 100
[2024-01-15] MEDS: aspirin 81mg, enteric-coated 1 TAB TABLET.DR PO SCH (07:19)
[2024-01-15 10:00] VITALS: BP 106/64; PULSE 93; RESP 15; TEMP 98.1; O2SAT 100
[2024-01-15 19:00] VITALS: BP 111/50; PULSE 94; RESP 16; RESP 17; TEMP 98.7; O2SAT 93; O2SAT 96
[2024-01-15] MEDS: insulin glargine (Lantus) pen - multi-dose SQ SCH (21:26)
[2024-01-15 22:00] VITALS: BP 131/70; PULSE 66; RESP 16; TEMP 98.2; O2SAT 96
[2024-01-16 06:00] VITALS: BP 136/78; PULSE 56; RESP 13; TEMP 97.4; O2SAT 99
[2024-01-16 06:29] LABS: BASOPHILS # (AUTO) 0.1 X10'3 (0-0.2); BASOPHILS % (AUTO) 0.8 % (0-1); EOSINOPHILS # (AUTO) 0.5 X10'3 (0-0.9); EOSINOPHILS % (AUTO) 7.2 % (0-6); HEMATOCRIT 23.5 % (42.0-52.0); LYMPHOCYTES # (AUTO) 1.9 X10'3 (1.1-4.8); LYMPHOCYTES % (AUTO) 25.2 % (21-51); MEAN CORPUSCULAR HGB CONC 34.1 g/dL (33.0-36.5); MEAN CORPUSCULAR VOLUME 93.9 FL (78-98); MEAN PLATELET VOLUME 7.3 FL (7.4-10.4); MONOCYTES % (AUTO) 13.5 % (2-12); NEUTROPHILS % (AUTO) 53.3 % (42-75); PLATELET COUNT 528 X10'3 (140-440); WHITE BLOOD COUNT 7.6 X10'3 (4.5-11.0)
[2024-01-16 06:51] LABS: ALBUMIN 1.9 G/DL (3.4-5.0); ANION GAP 6 (8-16); BLOOD UREA NITROGEN 13 MG/DL (7-18); BUN/CREATININE RATIO 15.9 (10.0-20.0); CALCIUM 8.7 MG/DL (8.5-10.1); CHLORIDE 104 MMOL/L (99-107); CREATININE 0.82 MG/DL (0.60-1.10); GLUCOSE 210 MG/DL (70-104); POTASSIUM 4.5 MMOL/L (3.5-5.1); SODIUM 140 MMOL/L (135-145); TOTAL CARBON DIOXIDE 29.6 MMOL/L (24-32); eCRCL 84 ML/MIN; eGFR > 90 ML/MIN
[2024-01-16 07:30] VITALS: RESP 13
[2024-01-16 08:00] VITALS: RESP 16
[2024-01-16] MEDS: DEXTROSE 15 GM of carb/4 tabs (each vial/BOTTLE has 4 tablets) PO PRN (12:26)
[2024-01-16 18:00] VITALS: BP 131/78; PULSE 78; RESP 16; TEMP 97.8; O2SAT 99
[2024-01-16 19:00] VITALS: RESP 16; O2SAT 99
[2024-01-16 22:00] VITALS: BP 139/46; PULSE 85; RESP 19; TEMP 97.2; O2SAT 100
[2024-01-17 07:19] VITALS: BP 133/73; PULSE 80; RESP 17; TEMP 97.6; O2SAT 99
[2024-01-17 10:00] VITALS: BP 140/71; PULSE 82; RESP 14; TEMP 98.4; O2SAT 99
[2024-01-17 11:49] VITALS: RESP 17; O2SAT 99
[2024-01-17 16:26] VITALS: RESP 18
[2024-01-17 19:00] VITALS: BP 129/69; PULSE 78; RESP 15; RESP 16; TEMP 97.8; O2SAT 98; O2SAT 99
[2024-01-17] MEDS: Dakins solution (1/4 strength) 473ml solution TP SCH (20:06)
[2024-01-17 22:00] VITALS: BP 112/61; PULSE 76; RESP 13; TEMP 96.9; O2SAT 98
[2024-01-18 06:41] VITALS: BP 154/76; PULSE 88; RESP 16; TEMP 97.2; O2SAT 98
[2024-01-18 07:00] VITALS: RESP 18
[2024-01-18 11:00] VITALS: BP 125/78; PULSE 85; RESP 16; TEMP 97.2; O2SAT 100
[2024-01-18 16:07] VITALS: RESP 16
[2024-01-18] MEDS: DOXYCYCLINE 100MG CAPSULE PO SCH (17:42)
[2024-01-18 19:00] VITALS: BP 132/75; PULSE 86; RESP 15; RESP 16; TEMP 97.9; O2SAT 95; O2SAT 97
[2024-01-18] MEDS: apixaban 5mg tablet PO SCH (21:10)
[2024-01-18 22:00] VITALS: BP 122/68; PULSE 79; RESP 16; TEMP 97.2; O2SAT 98
[2024-01-19 06:00] VITALS: BP 133/78; PULSE 83; RESP 18; TEMP 98.1; O2SAT 98
[2024-01-19 10:00] VITALS: BP 141/74; PULSE 86; RESP 14; TEMP 97.7; O2SAT 99
== END 2024-01-19 16:16 | disposition home health service (06) | DRG 181 ==
LOC: PAS IN 12:12 → CICU 2S 22:30 → ORTHO 4S 01-09 16:50
PROVIDERS: ADMIT Surgery; ATTEND Surgery
PROC: 04CL0ZZ Extirpation of Matter from Left Femoral Artery, Open Approach (ICD-10-PCS; 2024-01-08)
PROC: B41G1ZZ Fluoroscopy of Left Lower Extremity Arteries using Low Osmolar Contrast (ICD-10-PCS; 2024-01-08)
PROC: B4201ZZ Computerized Tomography (CT Scan) of Abdominal Aorta using Low Osmolar Contrast (ICD-10-PCS; 2024-01-08)
PROC: B4241ZZ Computerized Tomography (CT Scan) of Superior Mesenteric Artery using Low Osmolar Contrast (ICD-10-PCS; 2024-01-08)
PROC: B4281ZZ Computerized Tomography (CT Scan) of Bilateral Renal Arteries using Low Osmolar Contrast (ICD-10-PCS; 2024-01-08)
PROC: B42C1ZZ Computerized Tomography (CT Scan) of Pelvic Arteries using Low Osmolar Contrast (ICD-10-PCS; 2024-01-08)
PROC: B42H1ZZ Computerized Tomography (CT Scan) of Bilateral Lower Extremity Arteries using Low Osmolar Contrast (ICD-10-PCS; 2024-01-08)
PROC: B4211ZZ Computerized Tomography (CT Scan) of Celiac Artery using Low Osmolar Contrast (ICD-10-PCS; 2024-01-08)
PROC: B42H1ZZ Computerized Tomography (CT Scan) of Bilateral Lower Extremity Arteries using Low Osmolar Contrast (ICD-10-PCS; 2024-01-08)
PROC: 041L0JM Bypass Left Femoral Artery to Peroneal Artery with Synthetic Substitute, Open Approach (ICD-10-PCS; principal; 2024-01-08 14:25)
DX: I70.202 Unspecified atherosclerosis of native arteries of extremities, left leg (principal); E11.40 Type 2 diabetes mellitus with diabetic neuropathy, unspecified; I10 Essential (primary) hypertension
CPT/HCPCS: 36415; 71045; 73590; 75635; 76000; 80048; 80053; 82948; 85025; 85610; 85730; 86885; 86900; 86901; 87081; 93922; 93970; 97116; 97161; 97530; A4618; A4620; A6213; A6223; A6258; A6446; A6449; A6455; C1758; C1768; G0378; J0690; J0694; J1100; J1170; J1200; J1644; J1815; J2175; J2250; J2274; J2405; J2704; J2710; J2720; J3010; J3480; J3490; J7030; J7040; J7120; P9045; Q9967

== ENCOUNTER 2024-03-08 10:28 | Outpatient (CLI) | payer MEDICAID ==
[~2024-03-08 10:28] MED LIST changes: -CEPH-585 PO; -PER5325T PO
== END 2024-03-08 23:59 | disposition home or self-care (01) ==
LOC: VAS 10:28
PROVIDERS: ATTEND Surgery
DX: I73.9 Peripheral vascular disease, unspecified (principal)
CPT/HCPCS: 93926

== ENCOUNTER 2024-05-13 12:52 | Outpatient (CLI) | payer MEDICAID | END 2024-05-13 23:59 | disposition home or self-care (01) | LOC: VAS 12:52 | PROVIDERS: ATTEND Surgery | DX: I70.245 Atherosclerosis of native arteries of left leg with ulceration of other part of foot (principal); E11.621 Type 2 diabetes mellitus with foot ulcer; E11.42 Type 2 diabetes mellitus with diabetic polyneuropathy; L97.523 Non-pressure chronic ulcer of other part of left foot with necrosis of muscle; M79.89 Other specified soft tissue disorders; Z95.820 Peripheral vascular angioplasty status with implants and grafts | CPT/HCPCS: 36415; 73620; 85651; 86140; 93925 ==